=== PATIENT | female | born 1960 | race Caucasian/White ===

== ENCOUNTER → 2016-12-30 | Outpatient (CLI) | payer BC | END | disposition home or self-care (01) | LOC: LABPAT 12:31 | PROVIDERS: ATTEND Orthopaedic Surgery | DX: Z01.818 Encounter for other preprocedural examination (principal); Z01.810 Encounter for preprocedural cardiovascular examination; Z01.812 Encounter for preprocedural laboratory examination | CPT/HCPCS: 93005 ==

== ENCOUNTER → 2017-01-06 | Outpatient (CLI) | payer BC ==
[2017-01-06 13:51] LABS: CH 29.9; CHCM 33.3; HCT 34.7 % (34.0-46.0); HDW 2.67; HGB 11.7 gm/dL (11.4-16.0); MCH 30.4 pg (25.0-35.0); MCHC 33.7 g/dL (31.0-37.0); Mean Platelet Volume 6.2; RBC 3.85 m/uL (3.80-5.40); RDW 12.9 % (11.5-15.5)
[2017-01-06 13:53] LABS: Appearance,Urine Clear (Clear); Bilirubin,Urine Negative (Negative); Glucose,Urine (UA) Negative (Negative); Ketones,Urine Negative (Negative); Leukocyte Esterase,Urine Negative (Negative); Nitrite,Urine Negative (Negative); PH, Urine 5.5 (5.0-8.0); Protein,Urine Negative (Negative); Specific Gravity,Urine 1.007 (1.001-1.035); UA Billing (MACRO vs. MICRO) CHEM; Urobilinogen,Urine <2.0 mg/dL (<2.0)
[2017-01-06 13:59] LABS: Partial Thromboplastin Time 23.1 sec (22.0-30.0); Prothrombin Time 10.3 sec (9.0-12.0)
[2017-01-06 14:16] LABS: ALT 22 U/L (9-52); AST 18 U/L (14-36); Alkaline Phosphatase 100 U/L (38-126); Anion Gap 8 mmol/L; Blood Urea Nitrogen 11 mg/dL (7-17); Calcium 9.6 mg/dL (8.4-10.2); Carbon Dioxide 30 mmol/L (22-30); Chloride 102 mmol/L (98-107); Glucose 98 mg/dL (74-99); Non-African American GFR(MDRD) >60 (>60 ml/min/1.73 sqM); Potassium 3.7 mmol/L (3.5-5.1); Sodium 140 mmol/L (137-145); Total Bilirubin 0.4 mg/dL (0.2-1.3); Total Protein 6.8 g/dL (6.3-8.2)
== END | disposition home or self-care (01) ==
LOC: LABWHC1 13:18
PROVIDERS: ATTEND Orthopaedic Surgery
DX: Z01.812 Encounter for preprocedural laboratory examination (principal)
CPT/HCPCS: 36415; 80053; 81003; 85027; 85610; 85730; 86850; 86900; 86901; 87070

== ENCOUNTER 2017-01-16 10:54 | Inpatient (IN) | payer BC ==
[2017-01-10 15:42] VITALS: BMI 24.4
[~2017-01-16 10:54] MED LIST: ACETAMINOPHEN TAB 500 MG TAB PO ONE; DEXAMETHASONE SOD PHOSPHATE 10 MG/ML 1 ML VIAL IV ONE; HYDROmorphone 1 MG/ML 1 ML SYRINGE IVP PRN; MELOXICAM 7.5 MG TAB PO ONE; MIDAZOLAM 2 MG/2 ML VIAL IV PRN; ONDANSETRON 4 MG/2 ML VIAL IVP ONE; SCOPOLAMINE 1.5MG/72HR PATCH TRANSDERM ONE; TRANEXAMIC ACID 1,000 MG in SODIUM CHLORIDE 0.9% 100 ML IVPB ONE; ceFAZolin 2 GM in SODIUM CHLORIDE 0.9% 100 ML IVPB ONE
[2017-01-16 11:34] VITALS: RESP 16
[2017-01-16] MEDS ORDERED: LIDOCAINE 1% 20 ML VIAL (10MG/ML) FOR IV START INTRADERMA ONE (11:47)
[2017-01-16] MEDS: LACTATED RINGERS 1,000 ML IV SCH ×2 (11:47→15:43)
[2017-01-16] MEDS ORDERED: PROPOFOL 10 MG/ML 20 ML VIAL IV ONE (12:55)
[2017-01-16] MEDS ORDERED: fentaNYL (PF) 50 MCG/ML 2 ML AMP ONE (12:55)
[2017-01-16] MEDS ORDERED: SODIUM CHLORIDE 0.9% 100 ML BAG ONE (12:55)
[2017-01-16] MEDS ORDERED: TRANEXAMIC ACID 1,000 MG/10 ML VIAL ONE (12:55)
[2017-01-16] MEDS ORDERED: MIDAZOLAM 2 MG/2 ML VIAL ONE (12:55)
[2017-01-16] MEDS ORDERED: ROPIVACAINE 246.25 MG, EPINEPHrine 0.5 MG, KETOROLAC 30 MG, cloNIDine HCL/PF 80 MCG, WA... MISCELLANE ONE ×5 (13:38)
[2017-01-16] MEDS ORDERED: ceFAZolin 3,000 MG in SODIUM CHLORIDE 0.9% IRRIGATIO 3,000 ML IRRIGATION ONE (13:50)
[2017-01-16] MEDS ORDERED: HYDROmorphone 1 MG/ML 1 ML SYRINGE IVP PRN ×2 (15:21)
[2017-01-16] MEDS ORDERED: NALOXONE 0.4 MG/ML 1 ML VIAL IV PRN (15:21)
[2017-01-16] MEDS ORDERED: HYDROcodone/APAP 5-325MG 1 EACH TAB PO PRN (15:21)
[2017-01-16] MEDS ORDERED: ONDANSETRON 4 MG/2 ML VIAL IVP PRN (15:21)
[2017-01-16] MEDS ORDERED: MAGNESIUM HYDROXIDE 2,400 MG/10 ML CUP PO PRN (15:21)
--- NOTE | 2017-01-16 15:51 | XR ---
EXAMINATION TYPE: XR Hip Limited LT DATE OF EXAM: 01/16/2017 3:38 PM COMPARISON: NONE HISTORY: Postop alignment TECHNIQUE: One view submitted. FINDINGS: There is a prosthetic hip in near anatomic alignment. There is soft tissue edema and emphysema. IMPRESSION: 1. Postoperative change. Appears in near-anatomic alignment.
[2017-01-16] MEDS ORDERED: NIFEdipine XL 30 MG TAB.ER.24 PO PRN (17:41)
[2017-01-16] MEDS ORDERED: NON-FORMULARY DRUG (Dextroamphetamine/Amphetamine [Adderall] 10 MG) PO PRN (17:41)
[2017-01-16] MEDS: HYDROcodone/APAP 5-325MG 1 EACH TAB PO PRN (18:10)
[2017-01-16] MEDS: ASPIRIN 325 MG TAB PO SCH (19:50)
[2017-01-16] MEDS: SENNOSIDES-DOCUSATE SODIUM 1 EACH TAB PO SCH (19:50)
[2017-01-16] MEDS: ceFAZolin 2 GM in SODIUM CHLORIDE 0.9% 100 ML IVPB SCH (19:51)
[2017-01-16] MEDS: FAMOTIDINE 20 MG TAB PO SCH (19:51)
[2017-01-16] MEDS: HYDROmorphone 1 MG/ML 1 ML SYRINGE IVP PRN (20:56)
[2017-01-17] MEDS: HYDROcodone/APAP 5-325MG 1 EACH TAB PO PRN ×4 (00:45→19:11)
[2017-01-17] MEDS: ceFAZolin 2 GM in SODIUM CHLORIDE 0.9% 100 ML IVPB SCH (05:32)
[2017-01-17] MEDS: LACTATED RINGERS 1,000 ML IV SCH ×3 (05:34→08:34)
[2017-01-17] MEDS: hydrOXYzine PAMOATE 25 MG CAP PO PRN ×2 (07:14→12:27)
[2017-01-17] MEDS: buPROPion XL 150 MG TAB.ER.24H PO SCH (08:30)
[2017-01-17] MEDS: LORATADINE 10 MG TAB PO SCH (08:30)
[2017-01-17] MEDS: MELOXICAM 7.5 MG TAB PO SCH (08:30)
[2017-01-17] MEDS: ASPIRIN 325 MG TAB PO SCH ×2 (08:30→21:18)
[2017-01-17 08:46] LABS: Basophils % (A) 0 %; CH 30.2; CHCM 34.1; Eosinophils % (A) 0 %; HCT 28.2 % (34.0-46.0); Luc # (Auto) 0.08; Luc % (Auto) 1; Lymphocytes # (A) 1.6 k/uL (1.0-4.8); Lymphocytes % (A) 21 %; MCH 30.7 pg (25.0-35.0); MCHC 34.6 g/dL (31.0-37.0); MCV 88.8 fL (80.0-100.0); Mean Platelet Volume 6.4; Monocytes # (A) 0.4 k/uL (0-1.0); Monocytes % (A) 5 %; Neutrophils # (A) 5.7 k/uL (1.3-7.7); Neutrophils % (A) 73 %; RBC 3.17 m/uL (3.80-5.40); RDW 12.8 % (11.5-15.5); WBC 7.7 k/uL (3.8-10.6); WBC (Perox) 7.61
[2017-01-17 08:49] LABS: HGB 9.7 gm/dL (11.4-16.0)
--- NOTE | 2017-01-17 09:20 | P.PN ---
Subjective Principal diagnosis: Status post left total hip arthroplasty Patient is a pleasant 56-year-old female seen at bedside this morning. She is postop day #1 from left total hip arthroplasty performed by Dr. Benitez. She has pain at surgical surgical site as expected but denies any new complaints. She denies numbness, tingling, calf pain, abdominal pain or other. Review of systems is negative for fever, chills, chest pain, shortness of of breath, nausea, vomiting, dizziness, headaches, slurred speech or other. Objective - Vital Signs Vital signs: Vital Signs Temp 98.2 F 01/17/17 07:00 Pulse 65 01/17/17 07:00 Resp 16 01/17/17 07:00 BP 121/72 01/17/17 07:00 Pulse Ox 99 01/17/17 07:00 Intake & Output 01/16/17 01/17/17 01/17/17 18:59 06:59 18:59 Intake Total 1151 1500 Output Total 740 300 Balance 411 1200 Weight 56.699 kg Intake: IV 1151 Intake, IV Titration 1300 Amount Lactated Ringers 1,000 ml 1100 @ 100 mls/hr IV .Q10H ANTONIA Rx#:[id number] ceFAZolin 2 gm In Sodium 200 Chloride 0.9% 100 ml @ 100 mls/hr IVPB Q8H ANTONIA Rx#:[id number] Oral 200 Output: Urine 600 300 Estimated Blood Loss 140 Other: Voiding Method Toilet Toilet Bedpan # Voids 1 2 - Exam Inspection of the left lower extremity reveals benign surgical wound. There is no active bleeding, dehiscence or drainage. Neurovascular status with motor and sensation throughout the left lower extremity is intact. She has 2+ dorsalis pedis pulses less than 2 second cap refill. Calf is soft and Nontender. - Constitutional General appearance: Present: no acute distress - Psychiatric Psychiatric: Present: A&O x's 3, appropriate affect, intact judgment & insight - Labs CBC & Chem 7: 01/17/17 07:50 Labs: Abnormal Lab Results - Last 24 Hours (Table) 01/17/17 Range/Units 07:50 RBC 3.17 L (3.80-5.40) m/uL Hgb 9.7 L D (11.4-16.0) gm/dL Hct 28.2 L (34.0-46.0) % Assessment and Plan (1) S/P total hip arthroplasty Narrative/Plan: Patient will continue with routine postop orthopedic protocol including pain management, wound care, physical therapy where she is 50% weightbearing as tolerated, DVT prophylaxis and postoperative medical management. Expect that she'll discharge to home with home health tomorrow, 01/18/2017. Status: Acute Time with Patient: Less than 30
--- NOTE | 2017-01-17 09:31 | CONS ---
DATE OF CONSULTATION: REASON FOR CONSULTATION: Advice regarding hyperlipidemia, degenerative joint disease and multiple medical issues requested by Dr. Benitez. HISTORY OF PRESENT ILLNESS: 56 -year-old woman with a past medical history of fibromyalgia gastroesophageal reflux disease, hypertension, migraines, history of anxiety, depression, being followed by Dr. Joseph in the outpatient setting underwent left total knee joint arthroplasty by Dr. Benitez. The patient is being closely monitored. There is no history of fever, rigors or chills. No history of headache, loss of consciousness or seizures at this time. PAST MEDICAL HISTORY: Fibromyalgia, gastroesophageal reflux disease, hyperlipidemia, history of DJD, history of migraines, history of tonsillectomy. Medications prior to admission include home medications are: 1. Oxycodone 1 tablet b.i.d. p.r.n. 2. Fentanyl patch 100 mcg q.48 hours. 3. Wellbutrin XL 150 mg daily. 4. Ranitidine 150 mg q.h.s. 5. Naprosyn 500 mg p.o. b.i.d. 6. Procardia XL 30 mg daily. 7. Lidoderm patch daily. 8. Advil 400 400 mg t.i.d. p.r.n. 9. Fexofenadine. 10. Chiqui Allergy 180 mg p.o. daily. 12. Tylenol 500 mg q8h p.r.n. 13. Xanax 0.5 daily p.r.n. 14. Senokot-S 1 tablet p.o. b.i.d. 15. Hydrocodone Dos Rios 5 mg one tabs q.4-6h p.r.n. 16. Aspirin 325 mg daily. ALLERGIES: GABAPENTIN, CODEINE, LYRICA AND SULFA. FAMILY HISTORY: No history of heart disease or strokes in the family. SOCIAL HISTORY: Previous history of smoking. No history of alcohol intake. REVIEW OF SYSTEMS: ENT: No diminishing hearing. No diminished vision. CARDIOVASCULAR SYSTEM: No angina or palpitations. RESPIRATORY: No cough. GI: No nausea. : No dysuria. Nervous system: No numbness or weakness. ALLERGY/IMMUNOLOGY: No asthma or hayfever. MUSCULOSKELETAL: As mentioned earlier. HEMATOLOGY/ONCOLOGY: No anemia. ENDOCRINE: No history of diabetes or hypothyroidism. CONSTITUTIONAL: As mentioned earlier DERMATOLOGY: Negative. RHEUMATOLOGY: Negative. PSYCHIATRY: As mentioned earlier. PHYSICAL EXAMINATION: The patient is alert and oriented times three. Pulse is 79, blood pressure ntd, temperature 98.4. Pulse ox 100% on 3 liters. HEENT: Conjunctivae normal. Oral mucosa moist. NECK: No jugular venous distention. No carotid bruit. No lymph node enlargement. CARDIOVASCULAR: S1, S2 muffled. No S3, no S4. RESPIRATORY: Breath sounds diminished at the bases. No rhonchi. No crackles. ABDOMEN: Soft. Nontender. Legs: Status post left hip arthroplasty. CENTRAL NERVOUS SYSTEM: Higher functions as mentioned earlier. Moves all four limbs. Mild abnormal movements present. Otherwise, Labs were done recently: CBC within normal limits. Coags are normal. Chemistry LDL 126. Otherwise the rest are normal. UA shows some RBCs. ASSESSMENT: 1. Status post left total hip joint arthroplasty. 2. History of degenerative joint disease. 3. History of fibromyalgia. 4. History of gastroesophageal reflux disease. 5. History of migraine. 7. Urinary incontinence. 8. History atrial fibrillation. 9. History of anxiety, depression not otherwise specified. 10. Remote history of nicotine dependence. 11. FULL CODE. 12. Hypertension. 13. Chronic pain syndrome. RECOMMENDATIONS AND DISCUSSION: In this 56 -year-old who presented with multiple complex medical issues, we will monitor the patient closely, continue current medications, continue symptomatic treatment. Otherwise I would recommend resume the home medications, DVT prophylaxis. Incentive spirometry. We will follow the patient closely with you. Patient may be asked to follow up with the primary physician closely. Continue to monitor. Further recommendations to follow. Thank you, Dr. Benitez for letting us participate in the care of this patient. SONIA
[2017-01-17] MEDS: MULTIVITAMINS, THERA 1 EACH TAB PO SCH (11:52)
--- NOTE | 2017-01-17 15:19 | P.OP ---
Date of Procedure: 01/16/17 Procedure(s) Performed: PREOPERATIVE DIAGNOSIS: Left hip severe osteoarthritis POSTOPERATIVE DIAGNOSIS: Left hip severe osteoarthritis OPERATION: Left hip total replacement arthroplasty (uncemented implantation with metal on polyethylene articulation). ANESTHESIA: Spinal ESTIMATED BLOOD LOSS: 250 ml. CLAY PUDDLER: Caro Santos PA-C (assistance with: patient positioning, retraction, exposure, hemostasis, leg positioning, implantation, irrigation, closure, dressing) COMPLICATIONS: None apparent. COMPONENTS IMPLANTED: Nayan continuum acetabular cup with cluster holes; continuum longevity 15 elevated liner, 32 mm id; Nayan VerSys Fiber Metal stem ; VerSys 32 mm femoral head with +10.5 mm neck length extension INDICATIONS: Mrs. 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 She presents to the operating room today for total hip replacement. I have discussed the steps of the operation as well as potential risks and complications as being inclusive of, but not limited to: Leading, infection, scarring, discomfort, or vessel and/or nerve damage, need for further surgery, loosening, dislocation, wear, osteolysis, limb length inequality, fracture, blood clot, pulmonary embolism, , persistent limp, and other risks. The patient is aware these risks and wishes to proceed with surgery and has signed a consent form. PROCEDURE: After appropriate consent was obtained, the patient was taken to the operating room and placed in supine position. Spinal anesthetic was administered and after confirmation of adequate anesthesia, the patient was placed into the lateral decubitus position with the left side up. Care was taken to make sure that all pressure points were adequately padded and he was stabilized to the table with a Waldor[place] hip positioner. The left hip was prepped and draped in the usual aseptic fashion using a combination of DuraPrep and alcohol. [place]an drape was used for the case and the patient received intravenous antibiotics prior to the incision. "Time out" was called, confirming patient identity, side, procedure, availability of implants and administration of antibiotics. The incision was created directly over the greater trochanter and carried slightly posteriorly for a posterior approach to the hip. The incision was then deepened down to subcutaneous tissue and fascia rush. Fascia rush was split in line with the incision and split proximally along the fibers of the gluteus tomas. The underlying fibers of the muscle were teased apart using finger dissection and bleeding vessels were picked up and coagulated. Retractor was then placed posteriorly consisting of a blunt Casimiro. The short external rotators and capsule were exposed using good visualization of the attachment of the external rotators to the femur was established. The short external rotators and capsule were released using electrocautery from their femoral attachments. A hockey stick shaped incision was created in the capsule. Joint fluid was evacuated and the patient's hip was able to be dislocated fairly easily. The patient's femoral head was severely arthritic with eburnated bone present and a 360 degrees amezcua of osteophytes. The femoral neck cut was created approximately 1 cm superior to the lesser trochanter using a reciprocating saw. The femoral head and neck fragment was removed and attention was then directed to the acetabulum. An anterior acetabular retractor was applied followed by posterior retraction of the capsule with a Meyerding retractor. This afforded good visualization into the acetabular cavity. Soft tissue was removed and residual cartilage within the acetabular vault was removed using a curette. Labrum was removed using a long-handled knife. Attention was then directed to reaming. The size 44 reamer was used first, followed by increasing increments until the final size reamer was used. Please see the implantation sheet for exact sizes used for the components. Once the final reamer had been utilized to expand the socket it was noted that there was a good supportive bone around the acetabular socket and no further reaming needed to be performed. The trial the same size as the last reamer used was then impacted into the acetabular vault and found to have good fit. The acetabular component, one size (2mm) greater than the trial was then called for. The cluster holes were placed posteriorly and the component was impacted in a position of approximately 40 degrees abduction and 20 degrees anteversion. This matched this patient's nooksack anteversion and it was noted that the cup had excellent stability without need for additional screw fixation. Attention was then directed to the acetabular liner. The anteversion and abduction angle of the component was noted to be very good. A 15 elevated liner was used and locked into position. Osteophytes around the posterior and inferior aspect of the acetabulum were trimmed as necessary to prevent any impingement. Attention was then directed back to the proximal femur. Retractors were placed around the proximal femur and box osteotome was used followed by canal finder and trochanteric reamer. Cylindrical reaming was performed. Progressive broaching was then performed starting with a #10 broach and progressing final size, in a position of 15 degrees anteversion. [place] anteversion was within 5 degrees of stem position. The final size broach had excellent fit and fill of the patient's metaphysis and diaphysis. Trial reduction was then performed starting with size 32 mm femoral head and various neck combination of stability , limb length equality, and soft tissue tension. Trial components were then removed. The canal was lavaged and the final size femoral stem component was impacted into position. The implant fit very well and had excellent stability. The femoral head was then impacted onto the Block taper. Blood and debris were removed from the acetabular component and the hip was then reduced and checked for stability, limb length and soft tissue tension. These parameters found to be satisfactory, the wound was then thoroughly irrigated with normal saline. Final hemostasis was obtained using electrocautery and IV tranexamic acid, 1 g given at the time of prepping and draping, and another 1 g given at the time of closure. Local anesthetic solution consisting of ropivacaine with epinephrine, clonidine, and ketorolac was also used throughout the case targeting the capsule , fascia, and skin. Closure of the capsule was performed meticulously using #3 Vicryl suture. Four [id number] sutures were placed in the posterior capsule along with repair of the external rotators. The fascia rush was then repaired using combination of #3 Vicryl suture in interrupted fashion and Quill and running fashion. 2-0 Vicryl suture was used for the subcutaneous tissues and 3-0 Quill for the skin. Dermabond or Steri-Strips were then applied. The patient tolerated the procedure well. There were no complications and the wound bed was dry and there was no need for drain placement. Sterile dressing was then applied and the patient was carefully removed from the operating room table , placed on the stretcher and was taken to the recovery room in stable condition. Sponge and needle counts were correct.
--- NOTE | 2017-01-17 17:08 | P.CONS ---
History of Present Illness - Reason for Consult Consult date: 01/17/17 Prophylactic radiation for heterotropic ossification Requesting physician: Bari Benitez - History of Present Illness Ms. Broderick is a 56 year old status post left total hip arthroplasty post op day # 1. She tolerated therapy quite well with only 4/10 pain at the surgical site. She denies numbness, tingling, calf pain, or weakness. Ms. 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 Review of Systems Ears, nose, mouth and throat: Reports as per HPI Respiratory: Reports as per HPI Gastrointestinal: Denies abdominal pain, Denies diarrhea, Denies nausea, Denies vomiting Musculoskeletal: Reports limitation of motion, Reports neck pain Musculoskeletal: left: hip pain Past Medical History Past Medical History: Fibromyalgia, GERD/Reflux, Hyperlipidemia, Osteoarthritis (OA) Additional Past Medical History / Comment(s): migraines, varicose veins, "urinary leakage" History of Any Multi-Drug Resistant Organisms: None Reported Past Surgical History: Hysterectomy, Tonsillectomy, Tubal Ligation, Uterine Ablation Additional Past Surgical History / Comment(s): nasal surgery, breast lumpectomy rt breast, Past Anesthesia/Blood Transfusion Reactions: Motion Sickness, Postoperative Nausea & Vomiting (PONV) Additional Past Anesthesia/Blood Transfusion Reaction / Comm: vertigo, Past Psychological History: Anxiety, Depression Smoking Status: Former smoker Past Alcohol Use History: None Reported Additional Past Alcohol Use History / Comment(s): quit smoking age 19, smoked for 2-3 yrs Past Drug Use History: None Reported - Past Family History Mother Family Medical History: No Reported History Medications and Allergies Home Medications Medication Instructions Recorded Confirmed Type Ibuprofen [Advil] 400 mg PO TID PRN 02/19/16 01/16/17 History Lidocaine 5% Patch [Lidoderm] 3 patch TOPICAL DAILY 02/19/16 01/16/17 History buPROPion HCL [Wellbutrin XL] 150 mg PO DAILY 02/19/16 01/16/17 History fentaNYL 100MCG/HR PATCH 1 patch TRANSDERM Q48H 02/19/16 01/16/17 History [Duragesic 100Mcg/Hr Patch] oxyCODONE HCL/ACETAMINOPHEN 1 tab PO BID PRN 02/19/16 01/16/17 History [Percocet 10-325 mg] ALPRAZolam [Xanax] 0.25 mg PO DAILY PRN 01/10/17 01/16/17 History Acetaminophen [Tylenol] 500 mg PO Q8HR PRN 01/10/17 01/16/17 History Dextroamphetamine/Amphetamine 10 mg PO DAILY PRN 01/10/17 01/16/17 History [Adderall] Fexofenadine HCl [Chiqui Allergy] 180 mg PO DAILY 01/10/17 01/16/17 History NIFEdipine [Procardia XL] 30 mg PO DAILY PRN 01/10/17 01/16/17 History Naproxen [Naprosyn] 500 mg PO Q12HR 01/10/17 01/16/17 History Ranitidine HCl 150 mg PO HS 01/10/17 01/16/17 History Allergies Allergy/AdvReac Type Severity Reaction Status Date / Time gabapentin [From Neurontin] Allergy Severe Anaphylaxis Verified 01/16/17 17:10 codeine Allergy Rash/Hives Verified 01/10/17 15:22 pregabalin [From Lyrica] Allergy Unknown Verified 01/10/17 15:22 Sulfa (Sulfonamide Allergy Anaphylaxis Verified 01/16/17 17:10 Antibiotics) Physical Exam Vitals: Vital Signs Temp Pulse Pulse Resp BP Pulse Ox 01/17/17 07:00 98.2 F 65 16 121/72 99 01/17/17 00:40 96.8 F L 65 16 105/58 98 01/16/17 20:00 98.2 F 82 16 116/68 98 01/16/17 17:30 78 136/87 96 01/16/17 17:15 71 115/87 98 01/16/17 17:00 72 121/81 97 01/16/17 16:45 71 114/55 96 01/16/17 16:30 78 112/81 96 01/16/17 16:15 76 111/78 95 01/16/17 16:09 84 16 01/16/17 16:00 97 F L 77 108/55 94 L 01/16/17 15:56 84 16 113/62 98 01/16/17 15:41 79 16 117/61 100 01/16/17 15:26 72 16 123/58 100 01/16/17 15:11 98.2 F 65 16 119/61 97 Intake and Output 01/16/17 01/17/1701/17/17 22:59 06:59 14:59 Intake Total 600 1050 240 Output Total 900 Balance -300 1050 240 Intake: IV 150 Intake, IV Titration 450 850 Amount Lactated Ringers 1,000 ml 350 750 @ 100 mls/hr IV .Q10H ANTONIA Rx#:[id number] ceFAZolin 2 gm In Sodium 100 100 Chloride 0.9% 100 ml @ 100 mls/hr IVPB Q8H ANTONIA Rx#:[id number] Oral 200 240 Output: Urine 900 Other: Voiding Method Toilet Toilet Bedpan # Voids 1 2 Weight 56.699 kg - Constitutional General appearance: average body habitus - EENT Eyes: EOMI - Neck Neck: normal ROM - Respiratory Respiratory: bilateral: CTA - Cardiovascular Rhythm: regular - Musculoskeletal Musculoskeletal: left sided weakness Results CBC & Chem 7: 01/17/17 07:50 Labs: Abnormal Lab Results - Last 24 Hours (Table) 01/17/17 Range/Units 07:50 RBC 3.17 L (3.80-5.40) m/uL Hgb 9.7 L D (11.4-16.0) gm/dL Hct 28.2 L (34.0-46.0) % Assessment and Plan Plan: Ms. Broderick is a pleasant female status post left hip arthroplasty who now presents for external beam radiation to the left hip and surrounding tissues to decrease her risk of heterotropic ossification. Post operative RT has been shown to be an effective treatment in preventing heterotropic ossification of bone resulting in ankylosed joint. We therefore intend on delivering a single fraction of 700cGy with 23MV photons in an AP/PA beam arrangement. A discussion of the risks and side effects of treatment was had including, but not limited to : Skin redness, irritation, fertility changes, and risk of secondary malignancy. A consent was signed prior to CT Simulation.
[2017-01-17] MEDS: HYDROmorphone 1 MG/ML 1 ML SYRINGE IVP PRN ×2 (17:48→23:03)
[2017-01-17] MEDS: SENNOSIDES-DOCUSATE SODIUM 1 EACH TAB PO SCH (21:18)
[2017-01-17] MEDS: FAMOTIDINE 20 MG TAB PO SCH (21:18)
--- NOTE | 2017-01-17 21:55 | PN ---
DATE OF SERVICE: 01/17/2017 This 56 -year-old woman who was admitted with left total hip joint arthroplasty is improved significantly. No chest pain or palpitation. No fever. On exam, alert and oriented x three. Pulse is 65, blood pressure 120/70. Respiratory rate 16. Temperature 98.2. Pulse ox 99% on room air. HEENT: Conjunctivae normal. NECK: No jugular venous distention. CARDIOVASCULAR: S1, S2 muffled. RESPIRATORY: Breath sounds diminished at the bases. No rhonchi. No crackles. ABDOMEN: Soft, nontender. LEGS: Status post surgery. CENTRAL NERVOUS SYSTEM: No focal deficits. LABS: Hemoglobin 9.7. ASSESSMENT: 1. Status post left total hip joint arthroplasty. 2. History of degenerative joint disease. 3. History of fibromyalgia. 4. History of gastroesophageal reflux disease. 5. History of migraines. 6. Urine incontinence. 7. Anemia. 8. History of atrial fibrillation. 9. History of anxiety, depression, not otherwise specified. 10. Remote history of nicotine dependence. 11. Hypertension. 12. Chronic pain syndrome. 13. FULL CODE. RECOMMENDATIONS AND DISCUSSION: In this 56-year-old woman who was admitted after surgery is improving significantly. No chest pain. No palpitations. No fever. I would recommend DVT prophylaxis. Closely follow with orthopedic surgery. Further recommendations to follow.
[2017-01-17] MEDS ORDERED: TEMAZEPAM 15 MG CAP PO PRN (22:00)
[2017-01-18] MEDS: HYDROcodone/APAP 5-325MG 1 EACH TAB PO PRN (03:20)
[2017-01-18] MEDS: LACTATED RINGERS 1,000 ML IV SCH ×2 (07:10)
[2017-01-18] MEDS: HYDROmorphone 1 MG/ML 1 ML SYRINGE IVP PRN (07:46)
[2017-01-18] MEDS ORDERED: HYDROcodone/APAP 7.5-325MG 1 EACH TAB PO PRN ×2 (07:58→07:59)
[2017-01-18] MEDS: buPROPion XL 150 MG TAB.ER.24H PO SCH (08:33)
[2017-01-18] MEDS: LORATADINE 10 MG TAB PO SCH (08:33)
[2017-01-18] MEDS: MELOXICAM 7.5 MG TAB PO SCH (08:33)
[2017-01-18] MEDS: ASPIRIN 325 MG TAB PO SCH (08:33)
--- NOTE | 2017-01-18 08:34 | P.DS ---
Providers Date of admission: 01/16/17 10:54 Expected date of discharge: 01/18/17 Attending physician: Bari Benitez Consults: 01/16/17 15:21 Consult Physician Routine Consulting Provider: Barbara Perry Consult Reason/Comments: medical management Do you want consulting provider notified?: Yes 01/16/17 17:48 Consult Physician Urgent Consulting Provider: Kenny Waterman Consult Reason/Comments: Radiation Tx left hip Do you want consulting provider notified?: Yes Primary care physician: Stated None - Discharge Diagnosis(es) (1) Primary osteoarthritis of left hip Current Visit: Yes Status: Acute (2) S/P total hip arthroplasty Current Visit: Yes Status: Acute Priority: Medium Hospital Course: This is a 56-year-old female with known history of degenerative arthritis of the left hip. The patient presents for evaluation. After discussion and consideration patient elects to proceed with total hip arthroplasty. The patient is seen preoperatively by Dr. Joseph and cleared for surgery. Patient is admitted to [facility] on 01/16/2017 for total hip arthroplasty. The procedures performed without complication or sequelae. The patient is doing well postoperatively. She did a one-time dose of radiation to the left hip postoperatively for heterotopic ossification prophylaxis. Labs and vital signs are stable on day of discharge. On day of discharge patient's hip incision is healing well. There is minimal erythema. There is no drainage noted at this time. There is minimal soft tissue swelling to the hip and thigh. Patient has full foot and ankle motion without difficulty or pain. Neurovascular status to the left lower extremity is intact. Patient is discharged to home in good condition. Please see med rec for accurate list of home medications. Plan - Discharge Summary New Discharge Prescriptions: Aspirin 325 mg PO BID #120 tab HYDROcodone/APAP 10-325MG [[place] 10-325] 1 - 2 tab PO Q4-6H PRN #90 tab PRN Reason: Pain Sennosides-Docusate Sodium [Senokot-S] 1 tab PO BID #60 tablet Discharge Medication List Ibuprofen [Advil] 400 mg PO TID PRN 02/19/16 [History] Lidocaine 5% Patch [Lidoderm] 3 patch TOPICAL DAILY 02/19/16 [History] buPROPion HCL [Wellbutrin XL] 150 mg PO DAILY 02/19/16 [History] fentaNYL 100MCG/HR PATCH [Duragesic 100Mcg/Hr Patch] 1 patch TRANSDERM Q48H [History] oxyCODONE HCL/ACETAMINOPHEN [Percocet 10-325 mg] 1 tab PO BID PRN 02/19/16 [ History] ALPRAZolam [Xanax] 0.25 mg PO DAILY PRN 01/10/17 [History] Acetaminophen [Tylenol] 500 mg PO Q8HR PRN 01/10/17 [History] Dextroamphetamine/Amphetamine [Adderall] 10 mg PO DAILY PRN 01/10/17 [History] Fexofenadine HCl [Chiqui Allergy] 180 mg PO DAILY 01/10/17 [History] NIFEdipine [Procardia XL] 30 mg PO DAILY PRN 01/10/17 [History] Naproxen [Naprosyn] 500 mg PO Q12HR 01/10/17 [History] Ranitidine HCl 150 mg PO HS 01/10/17 [History] Aspirin 325 mg PO BID #120 tab 01/16/17 [Rx] Sennosides-Docusate Sodium [Senokot-S] 1 tab PO BID #60 tablet 01/16/17 [Rx] HYDROcodone/APAP 10-325MG [[place] 10-325] 1 - 2 tab PO Q4-6H PRN #90 tab [Rx] Follow up Appointment(s)/Referral(s): Caro Santos, WILLIS [PHYSICIAN TRANSIT MIXER DRIVER] - 2 Weeks [facility], [NON-STAFF] - 1 Week Activity/Diet/Wound Care/Special Instructions: 50% weightbearing w walker. May shower if no drainage from incision. Discharge Disposition: HOME WITH HOME HEALTH SERVICES
[2017-01-18 08:55] VITALS: BP 144/73; PULSE 78; TEMP 98.1
[2017-01-18] MEDS: MULTIVITAMINS, THERA 1 EACH TAB PO SCH (14:12)
--- NOTE | 2017-01-18 15:45 | PN ---
A 56-year-old admitted with left total hip arthroplasty and I was asked to re-evaluate the patient and give her medical clearance for discharge. Patient is otherwise clinically doing well. No other medical issues at this point of time except for patient is using too many opiates for pain. Counseling was provided regarding that. Patient is on nifedipine for blood pressure and her blood pressure appears to be stable with that and the patient is okay to be discharged from medical perspective. REVIEW OF SYSTEMS: CARDIOVASCULAR: No chest pain, no orthopnea, no PND, no palpitations. PULMONARY: Denied any shortness of breath. No cough or hemoptysis. GASTROINTESTINAL: No diarrhea, nausea or vomiting. No abdominal pain. Normoactive bowel sounds. NEUROLOGIC: No headaches, no weakness, no numbness. Medications were reviewed. PHYSICAL EXAMINATION: VITAL SIGNS: Temperature 98.1, pulse of 78, respiratory rate of 16, blood pressure is 144/73, saturating at 99% on room air. GENERAL: The patient is alert and oriented x3, not in any acute distress. Well developed, well nourished. HEENT: Pupils are round and equally reacting to light. EOMI. No scleral icterus. No conjunctival pallor. Normocephalic, atraumatic. No pharyngeal erythema. No thyromegaly. CARDIOVASCULAR: S1 and S2 present. No murmurs, rubs, or gallops. PULMONARY: Chest is clear to auscultation, no wheezing or crackles. ABDOMEN: Soft, nontender, nondistended, normoactive bowel sounds. No palpable organomegaly. MUSCULOSKELETAL: Defer to Orthopedic Surgery. EXTREMITIES: No cyanosis, clubbing, or pedal edema. NEUROLOGICAL: Gross neurological examination did not reveal any focal deficits. SKIN: No rashes. ASSESSMENT AND PLAN: 1. Left total hip arthroplasty. No significant postoperative complications. 2. Fibromyalgia. 3. Migraine history. 4. Gastroesophageal reflux disease. Patient is okay to be discharged from a medical perspective and patient was asked to follow up with primary care physician in about a week. Cardiac diet. Will sign off at this point of time.
== END 2017-01-18 15:17 | disposition home health service (06) | DRG 470 ==
LOC: 2ORMAIN 10:54 → 3SUR 15:15
PROVIDERS: ADMIT Orthopaedic Surgery; ATTEND Orthopaedic Surgery
PROC: 0SRB02A Replacement of Left Hip Joint with Metal on Polyethylene Synthetic Substitute, Uncemented, Open Approach (ICD-10-PCS; principal; 2017-01-16 12:30)
DX: M16.12 Unilateral primary osteoarthritis, left hip (principal); M87.852 Other osteonecrosis, left femur; I10 Essential (primary) hypertension; G43.909 Migraine, unspecified, not intractable, without status migrainosus; I48.91 Unspecified atrial fibrillation; F32.9 Major depressive disorder, single episode, unspecified; E78.5 Hyperlipidemia, unspecified; M79.7 Fibromyalgia; F41.9 Anxiety disorder, unspecified; M16.9 Osteoarthritis of hip, unspecified; K21.9 Gastro-esophageal reflux disease without esophagitis; M19.91 Primary osteoarthritis, unspecified site; G89.4 Chronic pain syndrome; R32 Unspecified urinary incontinence; D64.9 Anemia, unspecified; I83.90 Asymptomatic varicose veins of unspecified lower extremity; H91.90 Unspecified hearing loss, unspecified ear; Z88.2 Allergy status to sulfonamides; Z90.710 Acquired absence of both cervix and uterus; Z87.891 Personal history of nicotine dependence; Z79.1 Long term (current) use of non-steroidal anti-inflammatories (NSAID); Z79.891 Long term (current) use of opiate analgesic; Z79.899 Other long term (current) drug therapy; Z79.82 Long term (current) use of aspirin
CPT/HCPCS: 73501; 77290; 77307; 77332; 77334; 77412; 85025; 86850; 86900; 86901; 88300

== ENCOUNTER 2017-12-11 11:11 | Emergency (ER) | payer BC, OTHER, SELFPAY ==
[2017-12-11 11:30] VITALS: TEMP 98.1
[2017-12-11] MEDS ORDERED: EMTRICITABINE/TENOFOVIR (TDF) 1 EACH, RALTEGRAVIR POTASSIUM 400 MG PO ONE ×2 (12:32)
[2017-12-11] MEDS ORDERED: DIPH,PERTUS(ACELL)TETVAC-LF 0.5 ML VIAL IM ONE (12:40)
[2017-12-11] MEDS ORDERED: HEPATITIS B IMMUNE GLOBULIN 1 ML VIAL IM ONE (12:40)
[2017-12-11] MEDS ORDERED: HEPATITIS B VIRUS VAC-ADULT/PF 10 MCG/ML 1 ML VIAL IM ONE (12:40)
[2017-12-11] MEDS ORDERED: HEPATITIS B IMMUNE GLOBULIN 5 ML VIAL IM ONE (13:00)
[2017-12-11] MEDS ORDERED: HEPATITIS B VIRUS VAC-ADULT/PF 20 MCG/ML SYRINGE IM ONE (13:00)
--- NOTE | 2017-12-11 13:36 | ED ---
General Adult HPI - General Chief complaint: Needlestick/Exposure Stated complaint: NEEDLE STICK Time Seen by Provider: 12/11/17 12:12 Source: patient, RN notes reviewed Mode of arrival: ambulatory Limitations: no limitations - History of Present Illness Initial comments: Patient is a 57-year-old female who presents emergency room today with a chief complaint of a needlestick that occurred at work. 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 States she was cleaning up in the underneath one of the machines she took her hand to sweep along and she was poked by a small needle. She was able to find the needle. It is a small hypodermic needle. Patient states no one at work nose anything about it. She is unsure where it came from. Patient states she is unsure of hepatitis immunization status. States she does not believe that her tetanus is up-to-date. She states she did clean the area. She denies any other complaints or symptoms at this time. Patient denies any recent fever, chills, shortness of breath, chest pain, back pain, abdominal pain, headaches or visual changes, or any other complaints. - Related Data Home Medications Medication Instructions Recorded Confirmed Ibuprofen [Advil] 400 mg PO TID PRN 02/19/16 01/16/17 Lidocaine 5% Patch [Lidoderm] 3 patch TOPICAL DAILY 02/19/16 01/16/17 buPROPion HCL [Wellbutrin XL] 150 mg PO DAILY 02/19/16 01/16/17 fentaNYL 100MCG/HR PATCH 1 patch TRANSDERM Q48H 02/19/16 01/16/17 [Duragesic 100Mcg/Hr Patch] oxyCODONE HCL/ACETAMINOPHEN 1 tab PO BID PRN 02/19/16 01/16/17 [Percocet 10-325 mg] ALPRAZolam [Xanax] 0.25 mg PO DAILY PRN 01/10/17 01/16/17 Acetaminophen [Tylenol] 500 mg PO Q8HR PRN 01/10/17 01/16/17 Dextroamphetamine/Amphetamine 10 mg PO DAILY PRN 01/10/17 01/16/17 [Adderall] Fexofenadine HCl [Chiqui Allergy] 180 mg PO DAILY 01/10/17 01/16/17 NIFEdipine [Procardia XL] 30 mg PO DAILY PRN 01/10/17 01/16/17 Naproxen [Naprosyn] 500 mg PO Q12HR 01/10/17 01/16/17 Ranitidine HCl 150 mg PO HS 01/10/17 01/16/17 Previous Rx's Medication Instructions Recorded Aspirin 325 mg PO BID #120 tab 01/16/17 Sennosides-Docusate Sodium 1 tab PO BID #60 tablet 01/16/17 [Senokot-S] HYDROcodone/APAP 10-325MG [Walls 1 - 2 tab PO Q4-6H PRN #90 tab 01/18/17 10-325] Emtricitabine/Tenofovir (Tdf) 1 tab PO DAILY #28 tab 12/11/17 [Truvada 200 mg-300 mg Tablet] Raltegravir Potassium [Isentress] 400 mg PO Q12H #56 tab 12/11/17 Allergies Allergy/AdvReac Type Severity Reaction Status Date / Time gabapentin [From Neurontin] Allergy Severe Anaphylaxis Verified 12/11/17 11:30 codeine Allergy Rash/Hives Verified 12/11/17 11:30 pregabalin [From Lyrica] Allergy Unknown Verified 12/11/17 11:30 Sulfa (Sulfonamide Allergy Anaphylaxis Verified 12/11/17 11:30 Antibiotics) Review of Systems ROS Statement: Those systems with pertinent positive or pertinent negative responses have been documented in the HPI. ROS Other: All systems not noted in ROS Statement are negative. Past Medical History Past Medical History: Fibromyalgia Additional Past Medical History / Comment(s): migraines, varicose veins, "urinary leakage" History of Any Multi-Drug Resistant Organisms: None Reported Past Surgical History: Hysterectomy Additional Past Surgical History / Comment(s): nasal surgery, breast lumpectomy rt breast, Past Anesthesia/Blood Transfusion Reactions: Motion Sickness, Postoperative Nausea & Vomiting (PONV) Additional Past Anesthesia/Blood Transfusion Reaction / Comment(s): vertigo, Past Psychological History: Depression Smoking Status: Former smoker Past Alcohol Use History: None Reported Past Drug Use History: None Reported - Past Family History Mother Family Medical History: No Reported History General Exam - General Exam Comments Initial Comments: General: The patient is awake and alert, in no distress, and does not appear acutely ill. Neck: The neck is supple, there is no tenderness or JVD. Cardiovascular: There is a regular rate and rhythm. No murmur, rub or gallop is appreciated. Respiratory: Lungs are clear to auscultation, respirations are non-labored, breath sounds are equal. No wheezes, stridor, rales, or rhonchi. Musculoskeletal: Full range motion. Sensation intact. Pulses equal bilaterally 2+. Neurological: A&O x 3. CN II-XII intact, There are no obvious motor or sensory deficits. Coordination appears grossly intact. Speech is normal. Skin: Skin is warm and dry and no rashes or lesions are noted. Psychiatric: Normal mood and affect. Limitations: no limitations Course Vital Signs 12/11/17 11:26 Temperature 98.1 F Pulse Rate 84 Respiratory 18 Rate Blood Pressure 124/82 O2 Sat by Pulse 99 Oximetry Medical Decision Making - Medical Decision Making Case discussed with attending physician Dr. Goldberg. At this time patient was poked by a needle at work. Unsure with the needle came from. Appears to be a small hypodermic needle possibly for insulin. Was discussed with patient that it is a low likelihood of transmission. We did recommend a prophylaxis treatment. Patient was unsure of her hepatitis B status. Was given immunoglobulin here in the emergency room along with vaccine. She is advised to follow-up with employee health for further vaccination. Patient was started on HIV prophylaxis drugs given Truvada and Isentress here in the emergency room. Patient's tetanus has been updated. Patient is advised to follow-up with employee health tomorrow. Also given information to follow-up with infectious disease. Will be provided a prescription to continue with Truvada and Isentress. Disposition Clinical Impression: Needle stick injury Disposition: HOME SELF-CARE Condition: Stable Instructions: Needle Stick Injuries (ED) Additional Instructions: Please continue medications as prescribed follow-up with employee health tomorrow for further vaccination and treatment. Please follow-up with infectious disease. Please return to emergency room for any other concerns. Prescriptions: Emtricitabine/Tenofovir (Tdf) [Truvada 200 mg-300 mg Tablet] 1 tab PO DAILY #28 tab Raltegravir Potassium [Isentress] 400 mg PO Q12H #56 tab Referrals: Tavo Joseph DO [Primary Care Provider] - 1-2 days René Torres MD [STAFF PHYSICIAN] - 1-2 days Time of Disposition: 13:34
[2017-12-11 14:13] VITALS: BP 119/60; PULSE 77; RESP 20
[2017-12-11 19:18] LABS: Hepatitis C IgG Antibody Non-Reactive (Non-Reactive)
[2017-12-11 19:59] LABS: HIV AB P24 Non-Reactive (Non-Reactive); HIV P24 AG Non-Reactive (Non-Reactive)
--- NOTE | 2017-12-13 08:38 | CDI ---
Documentation Clarification OP Dear Elian ROWE PA-C, Please do addendum to ED report that describes the location and laterality of the injury. Thank you, Salma Olivier [facility]ist[facility] If you have any question, Please contact outpatient coding specialist at [phone] [facility]
== END 2017-12-11 14:13 | disposition home or self-care (01) ==
LOC: EC 11:11
DX: S69.91XA Unspecified injury of right wrist, hand and finger(s), initial encounter (principal); M79.7 Fibromyalgia; F32.9 Major depressive disorder, single episode, unspecified; Z87.891 Personal history of nicotine dependence; Z79.1 Long term (current) use of non-steroidal anti-inflammatories (NSAID); Z79.891 Long term (current) use of opiate analgesic; Z79.899 Other long term (current) drug therapy; Z88.2 Allergy status to sulfonamides; Z88.5 Allergy status to narcotic agent; Z88.8 Allergy status to other drugs, medicaments and biological substances; W46.0XXA Contact with hypodermic needle, initial encounter; Y99.0 Civilian activity done for income or pay; Z23 Encounter for immunization
CPT/HCPCS: 36415; 86803; 87340; 87390; 90371; 90471; 90472; 90715; 90746; 96372; 99282

== ENCOUNTER → 2018-02-27 | Outpatient (CLI) | payer BC ==
--- NOTE | 2018-02-27 15:56 | BD ---
EXAMINATION TYPE: Axial Bone Density DATE OF EXAM: 02/27/2018 COMPARISON: NONE CLINICAL HISTORY: Height: 59 Weight: 130.2 FRAX RISK QUESTIONS: Alcohol (3 or more units per day): no Family History (Parent hip fracture): no Glucocorticoids (More than 3mos): no (Ex: prednisone, prednisolone, methylprednisolone, dexamethasone, and hydrocortisone). History of Fracture in Adulthood: Secondary Osteoporosis: 1. Type 1 Diabetes: no 2. Hyperthyroidism: no 3. Menopause before 45: yes 4. Malnutrition: no 5. Chronic liver disease: no Rheumatoid Arthritis: no Current Tobacco Use: no RISK FACTORS HISTORY OF: family History of Osteoporosis: yes Active: yes Diet low in dairy products/other sources of calcium: no Postmenopausal woman: age 40 Lost more than 2 inches in height since high school: no Frequent falls: no MEDICATIONS: pain meds, cymbalta, procardia Additional History: EXAM MEASUREMENTS: Bone mineral densitometry was performed using the [employer] System. Bone mineral density as measured about the Lumbar spine is: ----- L1-L4(G/cm2): 0.832 T Score Values are as follows: ----- L2: -3.0 ----- L3: -2.8 ----- L4: -2.9 ----- L1-L4: -2.9 Bone mineral density: baseline Bone mineral density about the R hip (g/cm2): 0.739 Bone mineral density about the L hip (g/cm2): T Score values are as follows: -----R Neck: -2.2 -----R Total: -2.2 Bone mineral density : baseline IMPRESSION: 1. Osteoporosis lumbar spine. 2. Osteopenia bilateral femora NOTE: T-SCORE=SD OF THE YOUNG ADULT MEAN.
--- NOTE | 2018-02-28 13:44 | MM ---
Reason for exam: screening (asymptomatic). Last mammogram was performed 1 year and 11 months ago. History: Patient is postmenopausal. Family history of breast cancer in maternal grandmother at age 40. Cancelled Right US Needle Biopsy of the right breast, November 30, 2009. Benign excisional biopsy of the right breast, 1999. Took estrogen for 1 year beginning at age 48. Physical Findings: A clinical breast exam by your physician is recommended on an annual basis and results should be correlated with mammographic findings. MG Screening Mammo w CAD Bilateral CC and MLO view(s) were taken. Prior study comparison: April 04, 2016, bilateral MG screening mammo w CAD. March 23, 2015, right breast MG work up mamm w CAD RT. The breast tissue is heterogeneously dense. This may lower the sensitivity of mammography. Finding #1: Stable architectural distortion in the upper quadrant of the right breast consistent with known excisional biopsy history. Finding #2: There are typically benign round calcifications in both breasts. There is no discrete abnormality. ASSESSMENT: Benign, BI-RAD 2 RECOMMENDATION: Routine screening mammogram of both breasts in 1 year.
== END | disposition home or self-care (01) ==
LOC: RADMAMWWP 15:09
PROVIDERS: ATTEND Family Medicine
DX: Z12.31 Encounter for screening mammogram for malignant neoplasm of breast (principal); Z13.820 Encounter for screening for osteoporosis; M85.852 Other specified disorders of bone density and structure, left thigh; M85.851 Other specified disorders of bone density and structure, right thigh
CPT/HCPCS: 77067; 77080

== ENCOUNTER → 2018-09-05 | Outpatient (CLI) | payer BC ==
--- NOTE | 2018-09-05 16:35 | XR ---
EXAMINATION TYPE: XR Hip Complete RT DATE OF EXAM: 09/05/2018 COMPARISON: NONE HISTORY: 58-year-old female with right hip pain TECHNIQUE: 2 view FINDINGS: There is mild superolateral narrowing of hip joint space. Degenerative spurring at the acet abulum and femoral neck junction. Subchondral sclerosis along the acetabular roof. No acute fracture, subluxation, or dislocation. IMPRESSION: [id number] right hip OA.
== END | disposition home or self-care (01) ==
LOC: RADXRYALE 15:33
PROVIDERS: ATTEND Physician Assistant Medical
DX: M16.11 Unilateral primary osteoarthritis, right hip (principal)
CPT/HCPCS: 73502

== ENCOUNTER → 2018-11-21 | Outpatient (CLI) | payer BC ==
[2018-11-21 11:44] LABS: Basophils % (A) 0 %; Eosinophils # (A) 0.2 k/uL (0-0.7); Eosinophils % (A) 3 %; HCT 39.8 % (34.0-46.0); Lymphocytes # (A) 1.1 k/uL (1.0-4.8); Lymphocytes % (A) 17 %; MCH 29.8 pg (25.0-35.0); MCHC 32.7 g/dL (31.0-37.0); MCV 91.3 fL (80.0-100.0); Mean Platelet Volume 6.3; Monocytes # (A) 0.2 k/uL (0-1.0); Monocytes % (A) 3 %; Neutrophils # (A) 5.1 k/uL (1.3-7.7); Neutrophils % (A) 75 %; Platelet Count 276 k/uL (150-450); RBC 4.36 m/uL (3.80-5.40); RDW 13.2 % (11.5-15.5); WBC 6.7 k/uL (3.8-10.6)
[2018-11-21 14:05] LABS: Erythrocyte Sedimentation Rate 8 mm/hr (0-20)
--- NOTE | 2018-11-21 14:48 | NM ---
EXAMINATION TYPE: NM bone/joint limited DATE OF EXAM: 11/21/2018 COMPARISON: NONE HISTORY: Left hip pain TECHNIQUE: After the intravenous administration of 24.1 mCi Tc 99m MDP. Images acquired 3 hours pos t injection. Multiple views of pelvis are submitted. Photopenic defect is noted about the left hip compatible with hip prosthesis. I do not see evidence f or abnormal increased uptake about the femoral stem or tip of the stem. Mild acetabular uptake is see n bilaterally. No intense uptake to suggest fracture or osseous lesion. IMPRESSION: Mild degenerative uptake is seen in the bilateral hips. Otherwise unremarkable study.
== END ==
LOC: RADNMMAIN 09:49
PROVIDERS: ATTEND Orthopaedic Surgery
DX: M16.0 Bilateral primary osteoarthritis of hip (principal)
CPT/HCPCS: 85652; 85025; 86140; 78300; 36415; A9503

== ENCOUNTER → 2019-03-25 | Outpatient (CLI) | payer BC | END | disposition home or self-care (01) | LOC: LABWHC1 11:08 | PROVIDERS: ATTEND Orthopaedic Surgery | DX: Z01.812 Encounter for preprocedural laboratory examination (principal); T84.84XD Pain due to internal orthopedic prosthetic devices, implants and grafts, subsequent encounter; Z96.642 Presence of left artificial hip joint | CPT/HCPCS: 87070 ==

== ENCOUNTER 2019-04-02 09:28 | Inpatient (IN) | payer BC ==
--- NOTE | 2019-04-01 09:47 | HP ---
HISTORY AND PHYSICAL CHIEF COMPLAINT: Left hip pain. HISTORY OF PRESENT ILLNESS: The patient is a 58-year-old female who presents with progressive left hip pain, worsening over the past 1-1/2 years. She underwent total hip arthroplasty in 2017 and began having severe groin and thigh pain with weightbearing about 6 months afterwards. She denies fevers or chills. She denies any wound complications after surgery. She notes the pain severely limits her normal function and activities. PAST MEDICAL HISTORY: Significant for depression and arthritis. PAST SURGICAL HISTORY: Significant for left total hip arthroplasty, hysterectomy, and nasal septal surgery. CURRENT MEDICATIONS: Alendronate, fentanyl, Flexeril, lidocaine patch, Percocet, Procardia, and Wellbutrin. She has allergies to SULFA, LYRICA, and CODEINE. FAMILY HISTORY: Significant for strokes. SOCIAL HISTORY: Negative for current tobacco or alcohol use. REVIEW OF SYSTEMS: Sixteen point review of systems otherwise reviewed and is noncontributory. PHYSICAL EXAMINATION: On examination, the patient is approximately 5 foot tall, 123 pounds of mesomorphic habitus. HEENT exam is nonfocal. Neck is supple. Passive motion. Left hip flexion 80 degrees, external rotation with the hip flexed 50 degrees, internal rotation 10 degrees with pain. Straight leg raise is mildly positive. Her distal neurovascular exam appears intact in the left lower extremity. She is tender about the left sciatic notch. X-rays of the left hip obtained in the office show a lucency around the femoral stem in multiple zones. IMPRESSION: 1. Status post left total hip arthroplasty-painful. 2. Lumbar degenerative disk disease. RECOMMENDATIONS: I talked to the patient at length about her options. Condition and treatment options. At this point, she is quite symptomatic and I feel the majority of her symptoms emanate from her hip. At this point, she opts to proceed with surgery. We will plan to proceed with revision arthroplasty. Risks and benefits were discussed at length in layman's terms. We will institute DVT prophylaxis postoperatively. MMODL / IJN: [id number] /
[~2019-04-02 09:28] MED LIST changes: -ACETAMINOPHEN TAB 500 MG TAB PO ONE; -HYDROmorphone 1 MG/ML 1 ML SYRINGE IVP PRN; -MELOXICAM 7.5 MG TAB PO ONE; -TRANEXAMIC ACID 1,000 MG in SODIUM CHLORIDE 0.9% 100 ML IVPB ONE; -ceFAZolin 2 GM in SODIUM CHLORIDE 0.9% 100 ML IVPB ONE
[2019-04-02] MEDS: LACTATED RINGERS 1,000 ML IV SCH (10:19)
[2019-04-02] MEDS ORDERED: MELOXICAM 7.5 MG TAB PO ONE (10:24)
[2019-04-02] MEDS ORDERED: ACETAMINOPHEN TAB 500 MG TAB PO ONE (10:25)
[2019-04-02] MEDS ORDERED: PROPOFOL 10 MG/ML 20 ML VIAL IV ONE (10:49)
[2019-04-02] MEDS ORDERED: MIDAZOLAM 2 MG/2 ML VIAL ONE (10:49)
[2019-04-02] MEDS ORDERED: diphenhydrAMINE 50 MG/ML 1 ML VIAL ONE (10:49)
[2019-04-02] MEDS ORDERED: fentaNYL (PF) 50 MCG/ML 2 ML AMP ONE (10:49)
[2019-04-02] MEDS ORDERED: TRANEXAMIC ACID 1,000 MG/10 ML VIAL ONE (10:49)
[2019-04-02] MEDS ORDERED: ceFAZolin 1,000 MG VIAL ONE (10:49)
[2019-04-02] MEDS ORDERED: SODIUM CHLORIDE 0.9% 100 ML BAG ONE (10:49)
[2019-04-02] MEDS ORDERED: TRANEXAMIC ACID 1,000 MG in SODIUM CHLORIDE 0.9% 100 ML IVPB ONE ×4 (11:00)
[2019-04-02] MEDS ORDERED: ceFAZolin 3,000 MG in SODIUM CHLORIDE 0.9% IRRIGATIO 3,000 ML IRRIGATION ONE (11:27)
[2019-04-02] MEDS ORDERED: HYDROmorphone 0.5 MG/0.5 ML SYRINGE IVP PRN (12:59)
[2019-04-02] MEDS ORDERED: ACETAMINOPHEN TAB 325 MG TAB PO PRN (12:59)
[2019-04-02] MEDS ORDERED: NALOXONE 0.4 MG/ML 1 ML VIAL IV PRN (12:59)
[2019-04-02] MEDS ORDERED: traMADol 50 MG TAB PO PRN (12:59)
[2019-04-02] MEDS ORDERED: ONDANSETRON 4 MG/2 ML VIAL IVP PRN (12:59)
[2019-04-02] MEDS ORDERED: MAGNESIUM HYDROXIDE 2,400 MG/10 ML CUP PO PRN (12:59)
[2019-04-02] MEDS ORDERED: LACTATED RINGERS 1,000 ML IV ONE (13:08)
[2019-04-02] MEDS: HYDROmorphone 0.5 MG/0.5 ML SYRINGE IVP PRN ×8 (13:16→23:42)
--- NOTE | 2019-04-02 13:24 | XR ---
EXAMINATION TYPE: XR Hip Limited LT, FL guidance operating room DATE OF EXAM: 04/02/2019 CLINICAL HISTORY: Left hip arthroplasty revision. Fluoroscopic documentation. TECHNIQUE: Fluoroscopy. COMPARISON: None. FINDINGS: Fluoroscopic guidance was provided during procedure performed by Dr. Laogs. A total of 17 seconds of fluoroscopic time was utilized during the procedure and 3 spot images was acquired. IMPRESSION: As Above.
--- NOTE | 2019-04-02 13:27 | P.OP ---
Date of Procedure: 04/02/19 Preoperative Diagnosis: Aseptic loosening left total hip arthroplasty Postoperative Diagnosis: Same Procedure(s) Performed: Revision left total hip arthroplasty including the femoral component, femoral head, and acetabular liner Implants: Depuy Corail revision size 10 femoral stem, 32 mm +5 cobalt chrome femoral head, neutral 48 mm Nayan acetabular liner, 6.5 mm x 30 mm cancellus screw. Anesthesia: spinal Surgeon: Greg Lagos [employer]coach Driver #1: Van Mast Estimated Blood Loss (ml): 200 Pathology: other (Frozen section of the synovium along with static Gram stain) Condition: stable Indications for Procedure: The patient's a 58-year-old female who underwent a left total hip arthroplasty 2 years ago who presents with progressive pain with any weightbearing. Laboratory studies showed no evidence of indolent infection. X-rays showed evidence of probable loosening of the femoral component. A discussion of the risks and benefits of revision arthroplasty were discussed. She opted to proceed. Risks of the procedure to include infection, neurovascular injury, fracture, leg length discrepancy, instability and possible need for subsequent procedures was discussed. Informed consent was obtained. Operative Findings: As below Description of Procedure: The patient was brought to the operating room, and after induction of spinal anesthesia was placed lateral on the pegboard. The pelvis was stabilized perpendicular to the floor. Bony prominences were appropriately padded. The left lower extremity was prepped and draped in normal fashion. A 12 cm incision was then made centered over the greater trochanter extending distally in line with the femoral shaft and proximally to level the ASIS. The skin and subcutaneous tissues were divided sharply. Electrocautery was used for hem ostasis. The fascia rush and gluteus tomas fascia was then opened. Muscle fibers were bluntly dissected proximally. A self-retaining retractor was placed. The anterior and posterior margins of the gluteus medius muscles identified in the anterior two thirds detached from the greater trochanter with electrocautery. The gluteus minimus tendon was identified and detached in a similar fashion. A wide capsulotomy was performed. There was significant fluid in the joint and stat Gram stain was obtained and was negative for acute infection. The synovial tissue was sent for frozen section and had less than 5 white blood cells per high-power field. The hip was gently dislocated. The head was removed. There appeared to be significant trunionosis. The soft tissue around the femoral component was removed. The femoral component was easily removed with extractor. There appeared to be no bony ingrowth. Attention was then paid towards the acetabulum. The acetabular liner was fractured along the elevated lip. This was extracted from the acetabular shell. The acetabular shell was felt to be stable. I did detached the insertion guide and it was solid in the pelvis. A posterior superior screw was placed with the appropriate drill. Good purchase was obtained. A new neutral polyethylene liner was inserted and impacted. Care was taken to avoid any soft tissue interposition. Attention was then paid towards preparing the proximal femur. A canal reamer was used to the appropriate depth. Sequential broaching was performed up to a size 10 revision broach. This is placed in 15 of anteversion with the leg perpendicular to the floor. There was good rotational stability. A 32 mm +5 trial head along with a standard neck was placed. The hip was gently reduced. It was taken through range of motion and felt to be stable in flexion and extension with internal and external rotation. Fluoroscopy was used to check positioning of the acetabular and femoral components. The hip was gently dislocated. The trial components were then removed. The final size 10 revision stem was again inserted with the leg perpendicular to the floor in 15 of anteversion. Again there was good rotational stability. A 32 mm +5 cobalt chrome femoral head was gently impacted. The hip was gently reduced. Again it was felt to be stable in flexion and extension with internal and external rotation. I felt there was adequate bahai of soft tissue tension. Pulsatile lavage was then utilized. With the hip in abduction, the gluteus minimus and medius tendons reattached the greater trochanter with #2 Ethibond suture. Minimal drainage was noted this point, therefore no drain was placed. The second dose of IV TXA was given. The fascia rush and gluteus tomas fascia was closed with #2 Ethibond suture. The subcutaneous tissues were reapproximated interrupted 2-0 Vicryl sutures. The skin was reprepped with 3-0 subcuticular strata fix suture. Skin tape and adhesive was applied. A sterile dressing was applied. The patient was then awoken from sedation and transferred to recovery room in good condition. Blood loss was estimated 200 mL. No consultations were incurred. Sponge and needle counts were correct at the end of the case.
--- NOTE | 2019-04-02 13:43 | XR ---
Limited left hip HISTORY: Status post left hip arthroplasty Single frontal view of the left hip, correlation to prior left hip dated 01/16/2017 Patient is status post left hip arthroplasty. There is anatomic alignment. Lucency is present in the soft tissues. IMPRESSION: Orthopedic follow-up.
[2019-04-02] MEDS: fentaNYL (PF) 50 MCG/ML 2 ML AMP IVP ONE ×2 (14:03→14:08)
[2019-04-02 15:00] VITALS: BMI 23.5
--- NOTE | 2019-04-02 15:40 | P.CONS ---
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 Patient doesn't have any surgical drainage in place. Patient does have chronic pain for which patient is on multiple opiates including fentanyl patch as well as Percocet. Fentanyl is not being resumed for Percocet was already resumed by orthopedic surgery along with the patient is already on nonsteroidal anti-inflammatory medication patient was started on GI prophylaxis patient is also on Dilaudid for breakthrough pain. Patient denied any fever chills nausea vomiting abdominal pain. Patient last bowel movement was yesterday. Review of Systems REVIEW OF SYSTEMS: CONSTITUTIONAL: No fever, no malaise, no fatigue. HEENT: No recent visual problems or hearing problems. Denied any sore throat. CARDIOVASCULAR: No chest pain, orthopnea, PND, no palpitations, no syncope. PULMONARY: No shortness of breath, no cough, no hemoptysis. GASTROINTESTINAL: No diarrhea, no nausea, no vomiting, no abdominal pain. NEUROLOGICAL: No headaches, no weakness, no numbness. HEMATOLOGICAL: Denies any bleeding or petechiae. GENITOURINARY: Denies any burning micturition, frequency, or urgency. MUSCULOSKELETAL/RHEUMATOLOGICAL: Denies any joint pain, swelling, or any muscle pain. ENDOCRINE: Denies any polyuria or polydipsia. The rest of the 14-point review of systems is negative. Past Medical History Past Medical History: Fibromyalgia, GERD/Reflux Additional Past Medical History / Comment(s): migraines, varicose veins, "urinary leakage", RAYNAUD'S, HAD NEEDLE STICK 2018 WAS ON PROPHYLATIC MEDS. History of Any Multi-Drug Resistant Organisms: None Reported Past Surgical History: Hysterectomy, Joint Replacement Additional Past Surgical History / Comment(s): nasal surgery, breast lumpectomy rt breast, LT IZABEL 01/2017, COLONOSCOPY Past Anesthesia/Blood Transfusion Reactions: Motion Sickness, Postoperative Nausea & Vomiting (PONV) Additional Past Anesthesia/Blood Transfusion Reaction / Comm: vertigo, Past Psychological History: Depression Smoking Status: Former smoker Past Alcohol Use History: None Reported Additional Past Alcohol Use History / Comment(s): quit smoking age 19, smoked for 2-3 yrs Past Drug Use History: None Reported - Past Family History Mother Family Medical History: No Reported History Medications and Allergies Home Medications Medication Instructions Recorded Confirmed Type Lidocaine 5% Patch [Lidoderm] 3 patch TOPICAL DAILY 02/19/16 04/02/19 History buPROPion HCL [Wellbutrin XL] 150 mg PO DAILY 02/19/16 04/02/19 History oxyCODONE HCL/ACETAMINOPHEN 1 tab PO BID PRN 02/19/16 04/02/19 History [Percocet 10-325 mg] NIFEdipine [Procardia XL] 30 mg PO DAILY PRN 01/10/17 04/02/19 History Ranitidine HCl 150 mg PO HS 01/10/17 04/02/19 History Alendronate Sodium 70 mg PO BRYANT 03/26/19 04/02/19 History Cholecalciferol (Vitamin D3) 2,000 unit PO DAILY 03/26/19 04/02/19 History [Vitamin D3] Nabumetone [Relafen] 750 mg PO Q12H 03/26/19 04/02/19 History fentaNYL 50MCG/HR PATCH [Duragesic 1 patch TRANSDERM Q48H 03/26/19 04/02/19 History 50MCG/HR] Allergies Allergy/AdvReac Type Severity Reaction Status Date / Time gabapentin [From Neurontin] Allergy Severe Anaphylaxis Verified 04/02/19 15:00 codeine Allergy Rash/Hives Verified 04/02/19 15:00 Sulfa (Sulfonamide Allergy Anaphylaxis Verified 04/02/19 15:00 Antibiotics) pregabalin [From Lyrica] AdvReac MOOD Verified 04/02/19 15:00 SWINGS/WELTS Physical Exam Vitals: Vital Signs Temp Pulse Pulse Resp BP Pulse Ox 04/02/19 14:15 87 18 127/77 99 04/02/19 14:00 77 18 126/80 100 04/02/19 13:45 78 18 136/99 100 04/02/19 13:30 80 24 139/79 97 04/02/19 13:16 98.1 F 77 20 135/77 100 04/02/19 10:01 98.9 F 68 16 149/83 95 Intake and Output 04/02/19 04/02/19 04/02/19 06:59 14:59 22:59 Intake Total 1451 Output Total 200 Balance 1251 Intake: IV 1451 Output: Estimated Blood Loss 200 PHYSICAL EXAMINATION: GENERAL: The patient is alert and oriented x3, not in any acute distress. Well developed, well nourished. HEENT: Pupils are round and equally reacting to light. EOMI. No scleral icterus. No conjunctival pallor. Normocephalic, atraumatic. No pharyngeal erythema. No thyromegaly. CARDIOVASCULAR: S1 and S2 present. No murmurs, rubs, or gallops. PULMONARY: Chest is clear to auscultation, no wheezing or crackles. ABDOMEN: Soft, nontender, nondistended, normoactive bowel sounds. No palpable organomegaly. MUSCULOSKELETAL: No joint swelling or deformity. Left hip postsurgical effect EXTREMITIES: No cyanosis, clubbing, or pedal edema. NEUROLOGICAL: Gross neurological examination did not reveal any focal deficits. SKIN: No rashes. Assessment and Plan Plan: -Hypertension: Hold off on the pain to avoid perioperative hypotension. We'll monitor blood pressure -Left hip arthroplasty: Due to prophylaxis with a new anticoagulants. -Patient will need GI prophylaxis and S patient is a nonsteroidal anti- inflammatory for pain along with opiates -Chronic pain syndrome: Patient is on multiple opiate medications. Being t apered down by PCP as an outpatient.
[2019-04-02] MEDS: MELOXICAM 7.5 MG TAB PO SCH (16:32)
[2019-04-02] MEDS: oxyCODONE-APAP 10-325MG 1 EACH TAB PO PRN (18:17)
[2019-04-02] MEDS: FAMOTIDINE 20 MG TAB PO SCH (19:48)
[2019-04-02] MEDS: SENNOSIDES-DOCUSATE SODIUM 1 EACH TAB PO SCH (19:48)
[2019-04-03] MEDS: oxyCODONE-APAP 10-325MG 1 EACH TAB PO PRN ×4 (01:38→20:09)
[2019-04-03] MEDS: HYDROmorphone 0.5 MG/0.5 ML SYRINGE IVP PRN ×4 (04:33→22:19)
[2019-04-03] MEDS: MELOXICAM 7.5 MG TAB PO SCH (08:43)
[2019-04-03] MEDS: buPROPion XL 150 MG TAB.ER.24H PO SCH (08:44)
[2019-04-03 08:45] LABS: Basophils % (A) 0 %; Eosinophils # (A) 0.1 k/uL (0-0.7); Eosinophils % (A) 2 %; Lymphocytes # (A) 1.7 k/uL (1.0-4.8); Lymphocytes % (A) 23 %; MCH 30.2 pg (25.0-35.0); MCHC 32.4 g/dL (31.0-37.0); MCV 93.3 fL (80.0-100.0); Mean Platelet Volume 6.7; Monocytes # (A) 0.3 k/uL (0-1.0); Monocytes % (A) 5 %; Neutrophils # (A) 5.1 k/uL (1.3-7.7); Neutrophils % (A) 69 %; Platelet Count 272 k/uL (150-450); RBC 3.32 m/uL (3.80-5.40); WBC 7.3 k/uL (3.8-10.6)
[2019-04-03] MEDS: LIDOCAINE 5% PATCH TOPICAL SCH (08:45)
[2019-04-03] MEDS: RIVAROXABAN 10 MG TAB PO SCH (08:51)
--- NOTE | 2019-04-03 10:32 | P.PN ---
Subjective Progress Note Date: 04/03/19 Principal diagnosis: Status post revision left total hip arthroplasty Patient is evaluated today at bedside, she's resting in her hospital bed. She notes discomfort throughout the left lower extremity. She states she didn't sleep very well last night. She denies any chest pain or shortness of breath at this time. Objective - Vital Signs Vital signs: Vital Signs Temp 98.3 F 04/03/19 07:00 Pulse 97 04/03/19 07:00 Resp 15 04/03/19 07:00 BP 102/74 04/03/19 07:00 Pulse Ox 96 04/03/19 07:00 Intake & Output 04/02/19 04/03/19 04/03/19 18:59 06:59 18:59 Intake Total 1451 Output Total 200 Balance 1251 Intake: IV 1451 Output: Estimated Blood Loss 200 Other: Voiding Method Toilet # Voids 4 - Exam Left lower extremity: Incision is clean, dry, and intact. The exofin fusion tape is in good condi tion. There is minimal soft tissue swelling and ecchymosis surrounding the medial and lateral aspects of the incision. Calf is soft, no tenderness with palpation. Plantar flexion, dorsiflexion, EHL, FHL are intact. Sensory exam to light touch throughout the extremity is intact, dorsal pedis pulses 2+. - Labs CBC & Chem 7: 04/03/19 07:45 Labs: Abnormal Lab Results - Last 24 Hours (Table) 04/03/19 Range/Units 07:45 RBC 3.32 L (3.80-5.40) m/uL Hgb 10.0 L D (11.4-16.0) gm/dL Hct 31.0 L (34.0-46.0) % Microbiology - Last 24 Hours (Table) 04/02/19 11:53 Gram Stain - Preliminary Hip - Left Wound Culture - Preliminary 04/02/19 11:53 Anaerobic Culture - Preliminary Hip - Left Assessment and Plan Plan: Assessment: Postoperative day #1 status post revision left total hip arthroplasty Plan: Pain control, continue current medication GI and DVT prophylaxis, continue current medication Daily dressing changes/ice extremity Encourage incentive spirometer Medical recommendations Discharge planning: Hopeful discharge home tomorrow Time with Patient: Less than 30
[2019-04-03] MEDS: LACTATED RINGERS 1,000 ML IV SCH (10:55)
--- NOTE | 2019-04-03 12:57 | P.PN ---
Subjective No overnight events her pain is better controlled. Constitutional: Denied any fatigue denied any fever. Cardio vascular: denied any chest pain, palpitations Gastrointestinal denied any nausea vomiting Pulmonary: Denied any shortness of breath cough Neurologic denied any new focal deficits All inpatient medications were reviewed and appropriate changes in these medications as dictated in the interval history and assessment and plan. Objective - Vital Signs Vital signs: Vital Signs Temp 98.3 F 04/03/19 07:00 Pulse 97 04/03/19 07:00 Resp 15 04/03/19 07:00 BP 102/74 04/03/19 07:00 Pulse Ox 96 04/03/19 07:00 Intake & Output 04/02/19 04/03/19 04/03/19 18:59 06:59 18:59 Intake Total 1451 Output Total 200 Balance 1251 Intake: IV 1451 Output: Estimated Blood Loss 200 Other: Voiding Method Toilet # Voids 4 - Exam PHYSICAL EXAMINATION: GENERAL: The patient is alert and oriented x3, not in any acute distress. Well developed, well nourished. HEENT: Pupils are round and equally reacting to light. EOMI. No scleral icterus. No conjunctival pallor. Normocephalic, atraumatic. No pharyngeal erythema. No thyromegaly. CARDIOVASCULAR: S1 and S2 present. No murmurs, rubs, or gallops. PULMONARY: Chest is clear to auscultation, no wheezing or crackles. ABDOMEN: Soft, nontender, nondistended, normoactive bowel sounds. No palpable organomegaly. MUSCULOSKELETAL: No joint swelling or deformity. Left hip postsurgical effect EXTREMITIES: No cyanosis, clubbing, or pedal edema. NEUROLOGICAL: Gross neurological examination did not reveal any focal deficits. SKIN: No rashes. - Labs CBC & Chem 7: 04/03/19 07:45 Labs: Abnormal Lab Results - Last 24 Hours (Table) 04/03/19 Range/Units 07:45 RBC 3.32 L (3.80-5.40) m/uL Hgb 10.0 L D (11.4-16.0) gm/dL Hct 31.0 L (34.0-46.0) % Microbiology - Last 24 Hours (Table) 04/02/19 11:53 Gram Stain - Preliminary Hip - Left Wound Culture - Preliminary 04/02/19 11:53 Anaerobic Culture - Preliminary Hip - Left Assessment and Plan Plan: -Hypertension: Hold off on the pain to avoid perioperative hypotension. Continue to monitor blood pressure -Left hip arthroplasty: Due to prophylaxis with a new anticoagulants. -Patient will need GI prophylaxis and S patient is a nonsteroidal anti- inflammatory for pain along with opiates -Chronic pain syndrome: Patient is on multiple opiate medications. Being tapered down by PCP as an outpatient.
[2019-04-03] MEDS: SENNOSIDES-DOCUSATE SODIUM 1 EACH TAB PO SCH (20:09)
[2019-04-03] MEDS: FAMOTIDINE 20 MG TAB PO SCH (20:09)
[2019-04-04] MEDS: oxyCODONE-APAP 10-325MG 1 EACH TAB PO PRN ×2 (01:14→07:50)
[2019-04-04] MEDS: LACTATED RINGERS 1,000 ML IV SCH (02:11)
[2019-04-04] MEDS: HYDROmorphone 0.5 MG/0.5 ML SYRINGE IVP PRN (04:33)
[2019-04-04 07:48] VITALS: BP 147/87; PULSE 107; RESP 17; TEMP 98.2
[2019-04-04] MEDS: RIVAROXABAN 10 MG TAB PO SCH (07:48)
[2019-04-04] MEDS: MELOXICAM 7.5 MG TAB PO SCH (07:48)
[2019-04-04] MEDS: buPROPion XL 150 MG TAB.ER.24H PO SCH (07:51)
[2019-04-04] MEDS: LIDOCAINE 5% PATCH TOPICAL SCH (07:51)
--- NOTE | 2019-04-04 09:10 | P.PN ---
Subjective Progress Note Date: 04/04/19 Principal diagnosis: Status post revision left total hip arthroplasty Patient is evaluated today at bedside, she's resting in her hospital bed. Patient's pain is improved since yesterday.. She denies any chest pain or shortness of breath at this time. Objective - Vital Signs Vital signs: Vital Signs Temp 98.2 F 04/04/19 07:00 Pulse 107 H 04/04/19 07:00 Resp 17 04/04/19 07:00 BP 147/87 04/04/19 07:00 Pulse Ox 93 L 04/04/19 07:00 Intake & Output 04/03/19 04/04/19 04/04/19 18:59 06:59 18:59 Intake Total 580 240 Balance 580 240 Intake: Intake, IV Titration 400 Amount Lactated Ringers 1,000 ml 400 @ 50 mls/hr IV .Q20H [facility] Rx#:[id number] Oral 180 240 Other: Voiding Method Toilet # Voids 4 1 - Exam Left lower extremity: Incision is clean, dry, and intact. The exofin fusion tape is in good condition. There is minimal soft tissue swelling and ecchymosis surrounding the medial and lateral aspects of the incision. Calf is soft, no tenderness with palpation. Plantar flexion, dorsiflexion, EHL, FHL are intact. Sensory exam to light touch throughout the extremity is intact, dorsal pedis pulses 2+. - Labs CBC & Chem 7: 04/03/19 07:45 Labs: Microbiology - Last 24 Hours (Table) 04/02/19 11:53 Gram Stain - Preliminary Hip - Left Wound Culture - Preliminary Assessment and Plan Plan: Assessment: Postoperative day #2 status post revision left total hip arthroplasty Plan: Pain control, continue current medication GI and DVT prophylaxis, Eliquis 2.5mg bid Daily dressing changes/ice extremity Encourage incentive spirometer Medical recommendations Discharge planning: discharge home tody Time with Patient: Less than 30
--- NOTE | 2019-04-04 10:07 | P.DS ---
Providers Date of admission: 04/02/19 09:28 Expected date of discharge: 04/04/19 Attending physician: Greg Lagos Consults: 04/02/19 12:59 Consult Physician Routine Consulting Provider: Barbara Perry Consult Reason/Comments: medical management Do you want consulting provider notified?: Yes Primary care physician: [facility] Course: Date of admission: 04/02/2019 Date of discharge: 04/04/2019 Admission diagnosis: Status post revision left total hip arthroplasty Discharge diagnosis: Same Attending physician: Dr. Lagos Surgical procedures: Revision left total hip arthroplasty Brief history: Patient is a 58-year-old female with a history of a previous left total hip arthroplasty. She's been evaluated in the outpatient setting with increase in pain involving the left hip by Dr. Lagos. It was determined that there was aseptic loosening of the component, she was scheduled for revision left total hip arthroplasty on 04/02/2019. Hospital course: Details of patient's surgery can be found in operative report. Patient tolerated the procedure well and was subsequently transported to orthopedic floor. Patient's orthopeidc and medical care was provided daily. Patient had daily laboratory tests performed for evaluation of overall blood counts. Patient had daily physical therapy to include strengthening range of motion as well as education with walker ambulation. Patient was treated with Xarelto for their postoperative DVT prophylaxis during their inpatient stay. Patient was noted to have a relatively uneventful postoperative course. Patient reported satisfactory pain control with oral pain medications by postoperative day 0. Patient showed satisfactory progress with physical therapy. Patient moved steadily through the program and had no difficulty meeting the goals by postoperative day 2. Given patient's otherwise satisfactory course and having met physical therapy goals, plan is to discharge patient home on postoperative day 2. Discharge condition/disposition: Patient will be discharged home in stable condition. Discharge medications: Instructions are given on resumption of patient's normal daily medications per primary care recommendation, in addition patient will be prescribed Eliquis 2.5 mg. Discharge instructions: 1. Wound care and infection precautions, keep incision dry and covered while showering, no lotions, creams, moisturizers. No soaking, tubs, pools, hottubs. Do not scrub over the incision. 2. Weight-bear as tolerated with walker / cane until follow-up. 3. Ice and elevate when necessary. Do not exceed 20 minutes per hour with ice pack. 4. Utilize compression sleeve until seen at first follow up appointment. 5. Visiting nursing care. 6. Home physical therapy. 7. Pain meds and anticoagulants per prescription. 8. Pain medication has potential to cause constipation. Increase oral fluid and fiber intake. Contact primary care provider if you have not had a bowel movement within 48 hours after discharge 9. No anti-inflammatory medication until discussed at first post operative visit, this including Motrin, Aleve, Mobic, Diclofenac. 10. Follow up in office at 2 weeks postop with Rafael Mast PA-C 11. Follow up with your primary care doctor 7-10 days after discharge. 12. Contact [facility] with any questions, . Procedures: Revision left total hip arthroplasty Patient Condition at Discharge: Good Plan - Discharge Summary Discharge Rx Participant: Yes New Discharge Prescriptions: New Apixaban [Eliquis] 2.5 mg PO BID #60 tab No Action Lidocaine 5% Patch [Lidoderm] 3 patch TOPICAL DAILY oxyCODONE HCL/ACETAMINOPHEN [Percocet 10-325 mg] 1 tab PO BID PRN PRN Reason: Pain buPROPion HCL [Wellbutrin XL] 150 mg PO DAILY NIFEdipine [Procardia XL] 30 mg PO DAILY PRN PRN Reason: raynauds Ranitidine HCl 150 mg PO HS fentaNYL 50MCG/HR PATCH [Duragesic 50MCG/HR] 1 patch TRANSDERM Q48H Alendronate Sodium 70 mg PO BRYANT Nabumetone [Relafen] 750 mg PO Q12H Cholecalciferol (Vitamin D3) [Vitamin D3] 2,000 unit PO DAILY Discharge Medication List Lidocaine 5% Patch [Lidoderm] 3 patch TOPICAL DAILY 02/19/16 [History] buPROPion HCL [Wellbutrin XL] 150 mg PO DAILY 02/19/16 [History] oxyCODONE HCL/ACETAMINOPHEN [Percocet 10-325 mg] 1 tab PO BID PRN 02/19/16 [History] NIFEdipine [Procardia XL] 30 mg PO DAILY PRN 01/10/17 [History] Ranitidine HCl 150 mg PO HS 01/10/17 [History] Alendronate Sodium 70 mg PO BRYANT 03/26/19 [History] Cholecalciferol (Vitamin D3) [Vitamin D3] 2,000 unit PO DAILY 03/26/19 [History] Nabumetone [Relafen] 750 mg PO Q12H 03/26/19 [History] fentaNYL 50MCG/HR PATCH [Duragesic 50MCG/HR] 1 patch TRANSDERM Q48H 03/26/19 [History] Apixaban [Eliquis] 2.5 mg PO BID #60 tab 04/04/19 [Rx] Follow up Appointment(s)/Referral(s): [facility], [NON-STAFF] - Van Mast PAC [PHYSICIAN BRILLIANDEER LOPPER] - 04/19/19 1:30 pm Tavo Joseph DO [Primary Care Provider] - 04/12/19 10:20 am Activity/Diet/Wound Care/Special Instructions: Orthopedic Discharge Instructions: 1. Wound care and infection precautions, keep incision dry and covered while showering, no lotions, creams, moisturizers. No soaking, pools, hot tubs. Do not scrub over incision. 2. Weight-bear as tolerated with walker / cane until follow-up. 3. Ice and elevate when necessary. Do not exceed 20 minutes per hour with ice pack. 4. Utilize compression sleeve until seen at first follow up appointment. 5. Pain meds and anticoagulants per prescription. 6. Pain medication has potential to cause constipation. Increase oral fluid and fiber intake. Contact primary care provider if you have not had a bowel movement within 48 hours after discharge. 7. No anti-inflammatory medication until discussed at first post operative visit, this including Motrin, Aleve, Mobic, Diclofenac. 8. Follow up in office at 2 weeks postop with Rafael Mast PA-C 9. Follow up with your primary care doctor 7-10 days after discharge. 10. Contact [facility] with any questions, . Discharge Disposition: HOME WITH HOME HEALTH SERVICES
== END 2019-04-04 11:48 | disposition home health service (06) | DRG 468 ==
LOC: 2ORMAIN 09:28 → 4SSUR 13:01
PROVIDERS: ADMIT Orthopaedic Surgery; ATTEND Orthopaedic Surgery
PROC: 0SPB0JZ Removal of Synthetic Substitute from Left Hip Joint, Open Approach (ICD-10-PCS; principal; 2019-04-02 10:35)
PROC: 0SRB01Z Replacement of Left Hip Joint with Metal Synthetic Substitute, Open Approach (ICD-10-PCS; principal; 2019-04-02 10:35)
DX: T84.031A Mechanical loosening of internal left hip prosthetic joint, initial encounter (principal); G89.29 Other chronic pain; I73.00 Raynaud's syndrome without gangrene; K21.9 Gastro-esophageal reflux disease without esophagitis; M51.36 Other intervertebral disc degeneration, lumbar region; G43.909 Migraine, unspecified, not intractable, without status migrainosus; F32.9 Major depressive disorder, single episode, unspecified; M79.7 Fibromyalgia; Y79.2 Prosthetic and other implants, materials and accessory orthopedic devices associated with adverse incidents; Z79.899 Other long term (current) drug therapy; Z82.3 Family history of stroke; Z87.891 Personal history of nicotine dependence; Z88.2 Allergy status to sulfonamides; Z90.710 Acquired absence of both cervix and uterus; Z88.5 Allergy status to narcotic agent; Z88.8 Allergy status to other drugs, medicaments and biological substances; Z98.890 Other specified postprocedural states
CPT/HCPCS: 73501; 85025; 86850; 86900; 86901; 87070; 87075; 87205; 88305; 88331

== ENCOUNTER → 2019-07-17 | Outpatient (CLI) | payer BC ==
--- NOTE | 2019-07-18 09:25 | MM ---
Reason for exam: screening (asymptomatic). Last mammogram was performed 1 year and 5 months ago. History: Patient is postmenopausal. Family history of breast cancer in maternal grandmother at age 40. Cancelled Right US Needle Biopsy of the right breast, November 30, 2009. Benign excisional biopsy of the right breast, 1999. Took estrogen for 1 year beginning at age 48. Physical Findings: A clinical breast exam by your physician is recommended on an annual basis and results should be correlated with mammographic findings. MG Screening Mammo w CAD Bilateral CC and MLO view(s) were taken. Prior study comparison: February 27, 2018, bilateral MG screening mammo w CAD. April 04, 2016, bilateral MG screening mammo w CAD. The breast tissue is heterogeneously dense. This may lower the sensitivity of mammography. No suspicious calcifications are seen. Stable distortion upper outer right breast from previous surgery. No significant changes when compared with prior studies. ASSESSMENT: Benign, BI-RAD 2 RECOMMENDATION: Routine screening mammogram of both breasts in 1 year.
== END | disposition home or self-care (01) ==
LOC: RADMAMWWP 09:52
PROVIDERS: ATTEND Family Medicine
DX: Z12.31 Encounter for screening mammogram for malignant neoplasm of breast (principal)
CPT/HCPCS: 77067

== ENCOUNTER → 2019-07-31 | Outpatient (CLI) | payer BC ==
--- NOTE | 2019-07-31 13:18 | XR ---
EXAMINATION TYPE: XR finger RT DATE OF EXAM: 07/31/2019 COMPARISON: NONE HISTORY: Chronic pain and tightening. TECHNIQUE: 2 views right fourth and fifth fingers. FINDINGS: Incomplete extension right fifth finger at PIP joint. Mild to moderate narrowing PIP and DI P joints of fourth and fifth fingers with minimal spurring fifth PIP joint. No acute fracture is evid ent. Overlying soft tissue is unremarkable. IMPRESSION: As above.
--- NOTE | 2019-07-31 13:19 | XR ---
EXAMINATION TYPE: XR wrist complete RT DATE OF EXAM: 07/31/2019 CLINICAL HISTORY: Chronic pain and tightening. TECHNIQUE: Frontal, lateral and oblique images of the right wrist are obtained. COMPARISON: None FINDINGS: Some demineralization is present. There is no acute fracture/dislocation evident in the ri ght wrist. The joint spaces in the right wrist appear within normal limits. The overlying soft tiss ue appears unremarkable. IMPRESSION: As above.
--- NOTE | 2019-07-31 13:20 | XR ---
EXAMINATION TYPE: XR sacroiliac joint comp BILAT DATE OF EXAM: 07/31/2019 COMPARISON: NONE HISTORY: Chronic pain. TECHNIQUE: A frontal and oblique images of the pelvis focusing on bilateral sacroiliac joints is perf ormed. FINDINGS: Sacroiliac joints are symmetric about within normal limits. No suspicious asymmetric narrow ing or joint space sclerosis. No significant spurring is present. Partial visualization of metallic l eft hip prosthesis noted. IMPRESSION: As above.
== END | disposition home or self-care (01) ==
LOC: RADXRYALE 11:46
PROVIDERS: ATTEND Physician Assistant
DX: M25.841 Other specified joint disorders, right hand (principal); M25.531 Pain in right wrist; M54.5 Low back pain; M25.551 Pain in right hip; Z96.642 Presence of left artificial hip joint
CPT/HCPCS: 72202

== ENCOUNTER → 2019-10-17 | Outpatient (CLI) | payer BC ==
--- NOTE | 2019-10-17 11:49 | XR ---
EXAMINATION TYPE: XR Hip Complete RT DATE OF EXAM: 10/17/2019 CLINICAL HISTORY: Chronic increasing right hip pain TECHNIQUE: AP and frogleg views of the right hip are obtained. COMPARISON: 09/05/2018 FINDINGS: There is no acute fracture/dislocation evident in the right hip. The joint space in the r ight hip appears aligned with moderate femoral acetabular arthropathy as there are small subchondral cysts and acetabular roof sclerosis with small marginal osteophyte of the superior lateral femoral he ad. The overlying soft tissue appears unremarkable. IMPRESSION: There is no acute fracture or dislocation in the right hip. Moderate right femoral aceta bular arthropathy.
== END | disposition home or self-care (01) ==
LOC: RADXRYALE 11:16
PROVIDERS: ATTEND Physician Assistant
DX: M16.11 Unilateral primary osteoarthritis, right hip (principal)
CPT/HCPCS: 73502

== ENCOUNTER → 2020-07-28 | Outpatient (CLI) | payer BC ==
--- NOTE | 2020-07-28 15:42 | US ---
EXAMINATION TYPE: US abdomen limited DATE OF EXAM: 07/28/2020 COMPARISON: None CLINICAL HISTORY: 60-year-old female R10.11 RUQ PAIN. RUQ pain, heartburn, nausea, bloating. TECHNIQUE: Multiple sonographic images of the right upper quadrant are obtained. FINDINGS: EXAM MEASUREMENTS: Liver Length: 15.7 cm Gallbladder Wall: 0.2 cm CBD: 5.5 mm Right Kidney: 10.5 x 4.4 x 4.0 cm Pancreas: obscured by overlying midline bowel gas Liver: wnl Gallbladder: wnl Evidence for sonographic Craft's sign: no CBD: Upper limits of normal at 5.5 mm Right Kidney: wnl IMPRESSION: 1. Bile duct upper limits of normal in caliber at 5.5 mm, acceptable given patient's age. 2. No gallstones. 3. The pancreas is obscured by bowel gas.
== END | disposition home or self-care (01) ==
LOC: RADUSWWP 10:43
PROVIDERS: ATTEND Family Medicine
DX: R10.11 Right upper quadrant pain (principal)
CPT/HCPCS: 76705

== ENCOUNTER → 2020-10-13 | Outpatient (CLI) | payer BC ==
--- NOTE | 2020-10-16 10:32 | MM ---
Reason for exam: screening (asymptomatic). Last mammogram was performed 1 year and 3 months ago. History: Patient is postmenopausal. Family history of breast cancer in maternal grandmother at age 40 and breast cancer in paternal aunt at age 45. Cancelled Right US Needle Biopsy of the right breast, November 30, 2009. Benign excisional biopsy of the right breast, 1999. Took estrogen for 1 year beginning at age 48. Physical Findings: A clinical breast exam by your physician is recommended on an annual basis and results should be correlated with mammographic findings. MG Screening Mammo w CAD Bilateral CC and MLO view(s) were taken. Prior study comparison: July 17, 2019, bilateral MG screening mammo w CAD. February 27, 2018, bilateral MG screening mammo w CAD. The breast tissue is heterogeneously dense. This may lower the sensitivity of mammography. Superior right MLO excisional scar is unchanged. No significant changes when compared with prior studies. ASSESSMENT: Benign, BI-RAD 2 RECOMMENDATION: Routine screening mammogram of both breasts in 1 year.
== END | disposition home or self-care (01) ==
LOC: RADMAMWWP 11:27
PROVIDERS: ATTEND Family Medicine
DX: Z12.31 Encounter for screening mammogram for malignant neoplasm of breast (principal)
CPT/HCPCS: 77067

== ENCOUNTER 2021-02-26 11:05 | Day surgery (SDC) | payer BC ==
[2021-02-23 11:34] VITALS: BMI 35.3
[~2021-02-26 11:05] MED LIST changes: -DEXAMETHASONE SOD PHOSPHATE 10 MG/ML 1 ML VIAL IV ONE; +LACTATED RINGERS 1,000 ML IV SCH; +LIDOCAINE 1% (10MG/ML) FOR IV START INTRADERMA PRN; -MIDAZOLAM 2 MG/2 ML VIAL IV PRN; -ONDANSETRON 4 MG/2 ML VIAL IVP ONE; -SCOPOLAMINE 1.5MG/72HR PATCH TRANSDERM ONE
[2021-02-26 12:29] VITALS: RESP 16; TEMP 97.4
[2021-02-26] MEDS ORDERED: PROPOFOL 10 MG/ML 20 ML VIAL IV ONE (12:54)
--- NOTE | 2021-02-26 13:11 | P.PCN ---
Date of Procedure: 02/26/21 Procedure(s) Performed: BRIEF HISTORY: Patient is a 60-year-old pleasant white female scheduled for an elective colonoscopy as a part of evaluation of prior history of colon polyps. Her last colonoscopy was 5 years ago. PROCEDURE PERFORMED: Colonoscopy with snare polypectomy. PREOPERATIVE DIAGNOSIS: History of colon polyps. IV sedation per Anesthesia. PROCEDURE: After informed consent was obtained, the patient, was brought into the endoscopy unit. IV sedation was administered by Anesthesia under continuous monitoring. Digital rectal examination was normal. Initially the Olympus CF-160 flexible video colonoscope was then inserted in the rectum, gradually advanced into the cecum without any difficulty. Careful examination was performed as the scope was gradually being withdrawn. Ileocecal valve and the appendiceal orifice were visualized and appeared normal. Prep was excellent. Mucosa of the cecum, ascending colon, transverse colon, descending colon, sigmoid colon, and rectum appeared normal. Scattered sigmoid diverticulosis seen. In the distal rectum just proximal to the dentate line there was a 5 limited polyp that was removed by snare polypectomy. Retroflexion was performed in the rectum and no lesions were seen. The patient tolerated the procedure well. IMPRESSION: 5 mm distal rectal polyp status post polypectomy Scattered sigmoid diverticulosis RECOMMENDATIONS: Findings of this examination were discussed with the patient as well as a family. She was advised to follow with the biopsy results. If the biopsy reveals adenoma she can have a repeat colonoscopy in 5 years.
[2021-02-26 13:48] VITALS: BP 145/79; PULSE 71
== END 2021-02-26 13:55 | disposition home or self-care (01) ==
LOC: ORWHC2ENDO 11:05
PROVIDERS: ATTEND Internal Medicine Gastroenterology
DX: Z12.11 Encounter for screening for malignant neoplasm of colon (principal); K62.1 Rectal polyp; I10 Essential (primary) hypertension; M79.7 Fibromyalgia; Z79.899 Other long term (current) drug therapy; Z88.2 Allergy status to sulfonamides; Z88.8 Allergy status to other drugs, medicaments and biological substances
CPT/HCPCS: 88305; 45385; J2704

== ENCOUNTER → 2022-04-05 | Outpatient (CLI) | payer MEDICARE ==
--- NOTE | 2022-04-06 19:57 | MM ---
Reason for Exam: Screening (asymptomatic). Last mammogram was performed 1 year(s) and 6 month(s) ago. Patient History: Menarche at age 11. First Full-Term at age 21. Hysterectomy at age 47. Postmenopausal. Estrogen for 1 year from age 48 until age 49. 1999, Benign Excisional Biopsy on the right side. 11/30/2009, Cancelled Right US Needle Biopsy on the right side. Maternal grandmother had breast cancer, age 40. Paternal aunt had breast cancer, age 45. Risk Values: Brandy 5 year model risk: 1.6%. NCI Lifetime model risk: 7.3%. Prior Study Comparison: 02/27/2018 Bilateral Screening Mammogram, [facility]. 07/17/2019 Bilateral Screening Mammogram, [facility]. 10/13/2020 Bilateral Screening Mammogram, [facility]. Tissue Density: The breast tissue is heterogeneously dense. This may lower the sensitivity of mammography. Findings: Analyzed By CAD. Unchanged distortion upper outer quadrant right breast related to previous excision. No significant change from prior exams. Overall Assessment: Benign, BI-RAD 2 Management: Screening Mammogram of both breasts in 1 year. 1. Patient should continue monthly self breast exams. 2. A clinical breast exam by your physician is recommended on an annual basis. 3. This exam should not preclude additional follow-up of suspicious palpable abnormalities. Electronically signed and approved by: Slime Marquez M.D. Radiologist
== END | disposition home or self-care (01) ==
LOC: RADMAMWWP 11:02
PROVIDERS: ATTEND Family Medicine
DX: Z12.31 Encounter for screening mammogram for malignant neoplasm of breast (principal)
CPT/HCPCS: 77063; 77067

== ENCOUNTER → 2023-04-05 | Outpatient (CLI) | payer MEDICARE ==
--- NOTE | 2023-04-05 11:19 | MM ---
Reason for Exam: Clinical finding. Last screening mammogram was performed 12 month(s) ago. Patient History: Menarche at age 11. First Full-Term at age 21. Hysterectomy at age 47. Postmenopausal. Estrogen for 1 year from age 48 until age 49. 1999, Benign Excisional Biopsy on the right side. 11/30/2009, Cancelled Right US Needle Biopsy on the right side. Maternal grandmother had breast cancer, age 40. Paternal aunt had breast cancer, age 45. Risk Values: Brandy 5 year model risk: 1.7%. NCI Lifetime model risk: 7.1%. Tissue Density: The breast tissue is heterogeneously dense. This may lower the sensitivity of mammography. Findings: Analyzed By CAD. No suspicious mass or group of calcifications or architectural distortion within either breast. Benign-appearing round calcifications within both breasts. Overall Assessment: Incomplete: need additional imaging evaluation, BI-RAD 0 Management: Diagnostic Breast Ultrasound of the left breast. A clinical breast exam by your physician is recommended on an annual basis and results should be correlated with mammographic findings. This exam should not preclude additional follow-up of suspicious palpable abnormalities. Results were given to the patient verbally at the time of exam. Note on Brandy scores and lifetime risk: 1. A Brandy score greater than 3% is considered moderate risk. If this is the case, consider specialist referral to assess eligibility for a risk reducing agent. If overall lifetime risk for the development of breast cancer is 20% or higher, the patient may qualify for future screening with alternating mammogram and breast MRI. Electronically signed and approved by: Huseyin Blair D.O.
--- NOTE | 2023-04-05 11:33 | USB ---
Reason for Exam: Clinical finding. Patient History: Menarche at age 11. First Full-Term at age 21. Hysterectomy at age 47. Postmenopausal. Estrogen for 1 year from age 48 until age 49. 1999, Benign Excisional Biopsy on the right side. 11/30/2009, Cancelled Right US Needle Biopsy on the right side. Maternal grandmother had breast cancer, age 40. Paternal aunt had breast cancer, age 45. Risk Values: Brandy 5 year model risk: 1.7%. NCI Lifetime model risk: 7.1%. Technique: Method: Targeted. Patient Position: Supine. Prior Study Comparison: 07/17/2019 Bilateral Screening Mammogram, [facility]. 10/13/2020 Bilateral Screening Mammogram, [facility]. 04/05/2022 Bilateral MG 3D screening mammo w/cad, [facility]. Findings: Targeted ultrasound of the left breast at patient's region of pain at 12:00 was performed. No solid or cystic lesion identified. Overall Assessment: Negative, BI-RAD 1 Management: Screening Mammogram of both breasts in 1 year. Clinical management for patient's pain. A clinical breast exam by your physician is recommended on an annual basis and results should be correlated with mammographic findings. This exam should not preclude additional follow-up of suspicious palpable abnormalities. Results were given to the patient verbally at the time of exam. Electronically signed and approved by: Huseyin Blair D.O.
== END | disposition home or self-care (01) ==
LOC: RADMAMWWP 10:45
PROVIDERS: ATTEND Family Medicine
DX: R92.1 Mammographic calcification found on diagnostic imaging of breast (principal); N64.4 Mastodynia; Z78.0 Asymptomatic menopausal state; Z80.3 Family history of malignant neoplasm of breast
CPT/HCPCS: 77066; 76642; G0279; 77062

== ENCOUNTER 2023-04-14 12:38 | Day surgery (SDC) | payer MEDICARE ==
[2023-04-12 12:25] VITALS: BMI 35.1
[~2023-04-14 12:38] MED LIST changes: -LIDOCAINE 1% (10MG/ML) FOR IV START INTRADERMA PRN
[2023-04-14 13:58] VITALS: TEMP 97.5
[2023-04-14 14:06] LABS: Glucose,Whole Blood 114 mg/dL (70-110)
[2023-04-14] MEDS ORDERED: fentaNYL (PF) 50 MCG/1 ML VIAL IVP ONE ×2 (14:08→14:26)
[2023-04-14] MEDS ORDERED: PROPOFOL 10 MG/ML 20 ML VIAL IV ONE (14:50)
[2023-04-14] MEDS ORDERED: LIDOCAINE 2% INJ 20 MG/ML (2 ML VIAL) ONE (14:50)
--- NOTE | 2023-04-14 14:59 | P.PCN ---
Date of Procedure: 04/14/23 Procedure(s) Performed: BRIEF HISTORY: Patient is a 62-year-old, pleasant, white female scheduled for an upper endoscopy as a part of evaluation of chronic persistent nausea for the last 2 years duration. She has occasional epigastric pain but no emesis. She is on omeprazole 20 mg daily with some help.. PROCEDURE PERFORMED: Esophagogastroduodenoscopy with biopsy. PREOPERATIVE DIAGNOSIS: Chronic persistent nausea and epigastric pain of 2 years duration. IV sedation per anesthesia. PROCEDURE: After informed consent was obtained, the patient was brought into the endoscopy unit. IV sedation was administered by Anesthesia under continuous monitoring. Initially the Olympus GIF-140 video endoscope was inserted into the mouth. Esophagus intubated without any difficulty. It was gradually advanced into the stomach and duodenum and carefully examined. The bulb and the second part of the duodenum appeared normal. The scope at this time was withdrawn to the stomach, adequately insufflated with air, and upon careful examination, mucosa of the antrum, had mild gastritis and biopsies were done from this area. Mucosa of the body, cardia and the fundus appeared normal. The scope was then withdrawn into the esophagus. Moderate size hiatal hernia noted. The GE junction was located at 39 cm from the incisors. Circumferential erythema the GE junction consistent with LA grade a reflux esophagitis. The rest of the esophagus appeared normal. There were no erosions or ulcerations seen and the p atient tolerated the procedure well. IMPRESSION: 1. Moderate sized hiatal hernia. 2. Circumferential erythema of the GE junction consistent LA grade A reflux esophagitis. 3. Mild antral gastritis RECOMMENDATIONS: The findings of this examination were discussed with the patient as well as a family. She was advised to increase omeprazole to 20 mg twice daily for 3 months and see if this improves her symptoms. She was briefly educated about antireflux measures..
[2023-04-14 15:32] VITALS: BP 141/88; PULSE 83; RESP 18
== END 2023-04-14 15:46 | disposition home or self-care (01) ==
LOC: ORWHC2ENDO 12:38
PROVIDERS: ATTEND Internal Medicine Gastroenterology
DX: K29.50 Unspecified chronic gastritis without bleeding (principal); K44.9 Diaphragmatic hernia without obstruction or gangrene; K21.00 Gastro-esophageal reflux disease with esophagitis, without bleeding; I10 Essential (primary) hypertension; E78.5 Hyperlipidemia, unspecified; Z79.899 Other long term (current) drug therapy
CPT/HCPCS: 88305; 43239; J2704; J2001; J3010

== ENCOUNTER → 2023-06-09 | Outpatient (CLI) | payer MEDICARE ==
--- NOTE | 2023-06-09 10:44 | XR ---
EXAMINATION TYPE: XR cervical spine comp DATE OF EXAM: 06/09/2023 CLINICAL HISTORY: pain COMPARISON: NONE TECHNIQUE: Frontal, lateral, oblique, swimmers, and open mouth view of the cervical spine are obtaine d. FINDINGS: The cervical spine is visualized in its entirety from C1 thru the top of T1 level. It is s atisfactory in alignment without evidence of acute fracture or dislocation. The pre-vertebral soft t issue appears within normal limits. Disc spaces are well preserved. The C1-C2 articulation is unremar kable on the open mouth view. The oblique images are within normal limits. IMPRESSION: No acute fracture or dislocation is seen in the cervical spine.ICD 10 NO FRACTURE, INITI AL EVALUATION
== END | disposition home or self-care (01) ==
LOC: RADXRYALE 10:20
PROVIDERS: ATTEND Physician Assistant
DX: S16.1XXA Strain of muscle, fascia and tendon at neck level, initial encounter (principal)
CPT/HCPCS: 72050

== ENCOUNTER → 2024-06-11 | Outpatient (CLI) | payer MEDICARE ==
--- NOTE | 2024-06-12 09:11 | MM ---
Reason for Exam: Screening (asymptomatic). Last mammogram was performed 1 year(s) and 2 month(s) ago. Patient History: Menarche at age 11. First Full-Term at age 21. Hysterectomy at age 47. Postmenopausal. Estrogen for 1 year from age 48 until age 49. 1999, Benign Excisional Biopsy on the right side. 11/30/2009, Cancelled Right US Needle Biopsy on the right side. Maternal grandmother had breast cancer, age 40. Paternal aunt had breast cancer, age 45. Risk Values: Brandy 5 year model risk: 1.7%. NCI Lifetime model risk: 6.9%. Prior Study Comparison: 10/13/2020 Bilateral Screening Mammogram, [facility]. 04/05/2022 Bilateral MG 3D screening mammo w/cad, [facility]. 04/05/2023 Bilateral MG 3D diag mammo w/cad REJI, [facility]. Tissue Density: The breasts are heterogeneously dense, which may obscure small masses. Findings: Analyzed By CAD. There is no suspicious group of microcalcifications or new suspicious mass in either breast. Stable postoperative distortion right breast. Overall Assessment: Benign, BI-RAD 2 Management: Screening Mammogram of both breasts in 1 year. . Patient should continue monthly self-breast exams. A clinical breast exam by your physician is recommended on an annual basis. This exam should not preclude additional follow-up of suspicious palpable abnormalities. Note on Brandy scores and lifetime risk: 1. A Brandy score greater than 3% is considered moderate risk. If this is the case, consider specialist referral to assess eligibility for a risk reducing agent. 2. If overall lifetime risk for the development of breast cancer is 20% or higher, the patient may qualify for future screening with alternating mammogram and breast MRI. [facility], , 06/12/2024 9:08 AM. Electronically signed and approved by: Attila Calvert M.D. Radiologis
== END | disposition home or self-care (01) ==
LOC: RADMAMWWP 11:18
PROVIDERS: ATTEND Family Medicine
DX: Z12.31 Encounter for screening mammogram for malignant neoplasm of breast
CPT/HCPCS: 77063; 77067